=== PATIENT | male | born 1940 | race Two or more races ===

== ENCOUNTER 2023-08-22 04:04 | Inpatient (IN) | payer MEDICARE, OTHER ==
[~2023-08-22] VITALS: Ht 180.3 cm; Wt 88.0 kg
[2023-08-22] VITALS (11 sets, daily range): BP systolic 117–140; BP diastolic 59–82; PULSE 70–105; RESP 16–22; TEMP 97.5–98.5; O2SAT 93–96
[2023-08-22 04:27] LABS: Basophils # (auto) 0.1 10 ^3/uL (0-0.2); Basophils % (auto) 1.1 % (0.0-2.0); Eosinophils # (auto) 0.1 10 ^3/uL (0-0.8); Eosinophils % (auto) 1.7 % (0.0-7.0); Hematocrit 43.6 % (41.0-53.0); Hemoglobin 14.8 g/dL (13.5-17.5); Lymphocytes # (auto) 1.3 10 ^3/uL (0.4-5.4); Lymphocytes % (auto) 15.2 % (10.0-50.0); Mean Corpuscular Hemoglobin 32.5 pg (28.0-32.0); Mean Corpuscular Volume 95.5 fL (80.0-100.0); Monocytes # (auto) 0.5 10 ^3/uL (0-1.3); Monocytes % (auto) 6.3 % (0.0-12.0); Neutrophils # (auto) 6.3 10 ^3/uL (1.6-8.6); Neutrophils % (auto) 75.7 % (37.0-80.0); Nucleated Red Blood Cells % 0.1 %; Red Blood Cells 4.57 10^6/uL (4.5-5.90); Red Cell Distribution Width 14.7 % (11.8-14.3); White Blood Cell 8.3 10^3/uL (4.4-10.8)
[2023-08-22] MEDS: ALBUTEROL SULF 2.5 MG/0.5ML(0.5%) NEB SOLN NEB ONE (04:29)
[2023-08-22] MEDS: levoFLOXacin 500MG 100 ML IV ONE (04:48)
[2023-08-22 04:58] LABS: Albumin 3.9 g/dL (3.2-4.8); Alkaline Phosphatase 62 U/L (46-116); Anion Gap 8 (5-15); Aspartate Aminotransferase 8 U/L (13-40); BUN/Creatinine Ratio 16.9 (10.0-20.0); Blood Urea Nitrogen 12 mg/dL (9-23); Calcium 9.1 mg/dL (8.7-10.4); Carbon Dioxide 27 mmol/L (20-30); Chloride 107 mmol/L (98-107); Glucose 131 mg/dL (74-106); Sodium 142 mmol/L (136-145)
[2023-08-22 04:59] LABS: Alanine Aminotransferase < 9 U/L (7-40); Bilirubin, Total 0.6 mg/dL (0.2-1.0); Total Protein 6.4 g/dL (5.7-8.2)
[2023-08-22] MEDS ORDERED: ALBUTEROL SULF 2.5 MG/0.5ML(0.5%) NEB SOLN NEB PRN (06:45)
[2023-08-22] MEDS ORDERED: ONDANSETRON HCL 4 MG/2 ML VIAL IV PRN (06:45)
[2023-08-22] MEDS: cefTRIAXone 1GM/50ML D5W 50 ML IV SCH (09:43)
[2023-08-22] MEDS: ENOXAPARIN SOD 40 MG/0.4 ML SYRINGE SC SCH (09:43)
[2023-08-22] MEDS: IOHEXOL 350 MG/ML 100ML IJ ONE (10:08)
[2023-08-22] MEDS: METOPROLOL SUCCINATE XL 50 MG TAB PO ONE (11:50)
[2023-08-22] MEDS: amLODIPine BESYLATE 5 MG TAB PO ONE (11:50)
[2023-08-22] MEDS: AZITHROMYCIN 500MG/ 250ML 250 ML IV SCH (11:51)
[2023-08-22 11:53] LABS: Folate (Folic Acid) 43.47 ng/mL (>5.38)
[2023-08-22] MEDS: FUROSEMIDE 20 MG/2 ML VIAL IV ONE (11:58)
[2023-08-22] MEDS: PREGABALIN CAPSULE 75 MG CAP PO ONE (12:05)
[2023-08-22 12:43] LABS: Urine Bacteria None Seen /hpf (None Seen)
[2023-08-22 13:08] LABS: Urine Blood Negative /uL (Negative); Urine Clarity Clear (Clear); Urine Color Light-Yellow (Yellow); Urine Protein, UAD TRACE (Negative); Urine Urobilinogen Normal (Negative); Urine WBC 2 /hpf (0 - 3); Urine pH 6.5 (5.0-9.0)
[2023-08-22 13:52] LABS: COVID19 ANTIGEN SOFIA FIA NEGATIVE (NEGATIVE)
[2023-08-22 13:53] LABS: Rapid Influenza A Negative (Negative); Rapid Influenza B Negative (Negative)
[2023-08-22] MEDS: APIXABAN 5 MG TAB PO SCH (21:03)
[2023-08-22] MEDS: PREGABALIN CAPSULE 75 MG CAP PO SCH (21:04)
[2023-08-23] VITALS (10 sets, daily range): BP systolic 92–127; BP diastolic 48–68; PULSE 60–100; RESP 16–20; TEMP 97.6–98.1; O2SAT 91–98
[2023-08-23] MEDS: ACETAMINOPHEN 325 MG TAB PO PRN (05:55)
[2023-08-23 07:03] LABS: Basophils # (auto) 0.1 10 ^3/uL (0-0.2); Basophils % (auto) 0.9 % (0.0-2.0); Eosinophils # (auto) 0.1 10 ^3/uL (0-0.8); Eosinophils % (auto) 1.5 % (0.0-7.0); Hematocrit 39.6 % (41.0-53.0); Hemoglobin 13.6 g/dL (13.5-17.5); Lymphocytes # (auto) 1.5 10 ^3/uL (0.4-5.4); Mean Corpuscular Hemoglobin 32.6 pg (28.0-32.0); Mean Corpuscular Hgb Conc. 34.5 g/dL (32.0-36.0); Mean Corpuscular Volume 94.5 fL (80.0-100.0); Monocytes # (auto) 0.7 10 ^3/uL (0-1.3); Monocytes % (auto) 7.5 % (0.0-12.0); Neutrophils # (auto) 7.1 10 ^3/uL (1.6-8.6); Neutrophils % (auto) 74.1 % (37.0-80.0); Nucleated Red Blood Cells % 0.1 %; Red Blood Cells 4.19 10^6/uL (4.5-5.90); Red Cell Distribution Width 14.4 % (11.8-14.3); White Blood Cell 9.5 10^3/uL (4.4-10.8)
[2023-08-23 07:28] LABS: Chloride 105 mmol/L (98-107); Potassium 3.9 mmol/L (3.5-5.1); Sodium 143 mmol/L (136-145)
[2023-08-23 07:29] LABS: Anion Gap 8 (5-15); Calcium 8.9 mg/dL (8.7-10.4); Carbon Dioxide 30 mmol/L (20-30)
[2023-08-23 07:34] LABS: BUN/Creatinine Ratio 15.6 (10.0-20.0); Blood Urea Nitrogen 12 mg/dL (9-23); Glucose 91 mg/dL (74-106)
[2023-08-23] MEDS ORDERED: METF-370 PO (08:23)
[2023-08-23] MEDS ORDERED: LISI20TA56 PO (08:24)
[2023-08-23] MEDS ORDERED: METO25TA5 PO (08:25)
[2023-08-23] MEDS ORDERED: B-CO1CAP18 PO (08:26)
[2023-08-23] MEDS ORDERED: AMLO1TAB22 PO (08:27)
[2023-08-23] MEDS ORDERED: APIX5TAB PO (08:27)
[2023-08-23] MEDS ORDERED: PREG75CA PO (08:30)
[2023-08-23] MEDS: FUROSEMIDE 20 MG/2 ML VIAL IV SCH (09:28)
[2023-08-23] MEDS: METOPROLOL SUCCINATE XL 50 MG TAB PO SCH (09:29)
[2023-08-23] MEDS: amLODIPine BESYLATE 5 MG TAB PO SCH (09:29)
[2023-08-23] MEDS: EMPAGLIFLOZIN 10 MG TAB PO SCH (09:33)
[2023-08-23] MEDS: SPIRONOLACTONE 25 MG TAB PO SCH (09:34)
[2023-08-23] MEDS: CYANOCOBALAMIN (B-12) 1000 MCG/1 ML VIAL IM ONE (16:05)
[2023-08-24] VITALS (10 sets, daily range): BP systolic 99–140; BP diastolic 53–76; PULSE 65–92; RESP 16–22; TEMP 97.5–98.7; O2SAT 91–97
[2023-08-24] MEDS: LISINOPRIL 5 MG TAB PO SCH (09:08)
[2023-08-24] MEDS: METOPROLOL TARTRATE 25 MG TAB PO SCH (09:08)
[2023-08-25] VITALS (10 sets, daily range): BP systolic 110–155; BP diastolic 60–89; PULSE 66–108; RESP 16–19; TEMP 97.7–98.1; O2SAT 93–97
[2023-08-25 11:33] LABS: Base Excess -0.3 mmol/L (-2.0-2.0)
[2023-08-26 05:00] VITALS: BP 124/68; PULSE 114; RESP 16; TEMP 98.7; O2SAT 95
[2023-08-26 08:00] VITALS: PULSE 80; RESP 18; O2SAT 92
[2023-08-26] MEDS ORDERED: EMPA1TAB PO (08:29)
[2023-08-26] MEDS ORDERED: SPIR25TA PO (08:29)
[2023-08-26] MEDS ORDERED: FURO20TA3 PO (08:29)
[2023-08-26 09:57] VITALS: O2SAT 94
[2023-08-26 10:18] VITALS: BP 145/80; PULSE 75; RESP 18; TEMP 37.1; O2SAT 92
== END 2023-08-26 11:45 | disposition home or self-care (01) | DRG 177 ==
LOC: ER 04:04 → EDBD 04:04 → OVERFLOW 06:48 → WEST WING 08:58
PROVIDERS: ADMIT Internal Medicine; ATTEND Internal Medicine
DX: J15.69 Pneumonia due to other Gram-negative bacteria (principal); I50.23 Acute on chronic systolic (congestive) heart failure; J96.01 Acute respiratory failure with hypoxia; I11.0 Hypertensive heart disease with heart failure; J15.9 Unspecified bacterial pneumonia; I48.0 Paroxysmal atrial fibrillation; Z20.822 Contact with and (suspected) exposure to COVID-19; E11.9 Type 2 diabetes mellitus without complications; Z90.2 Acquired absence of lung [part of]; Z85.118 Personal history of other malignant neoplasm of bronchus and lung; Z92.3 Personal history of irradiation; Z80.0 Family history of malignant neoplasm of digestive organs; Z79.899 Other long term (current) drug therapy
CPT/HCPCS: 36415; 36600; 71045; 71275; 80048; 80053; 81001; 82306; 82607; 82746; 82805; 83036; 83735; 83880; 84439; 84443; 84484; 85025; 85379; 87426; 87804; 93005; 93306; 93970; 94640; 96365; 96366; 99291; G0378; J1956

== ENCOUNTER 2024-08-24 08:43 | Inpatient (IN) | payer OTHER, MEDICARE ==
[~2024-08-24] VITALS: Ht 172.7 cm; Wt 76.8 kg
[2024-08-24] VITALS (10 sets, daily range): BP systolic 108–146; BP diastolic 62–80; PULSE 65–120; RESP 16–21; TEMP 97–97.9; O2SAT 92–98
[~2024-08-24 08:43] MED LIST: AMLO1TAB22 PO; APIX5TAB PO; B-CO1CAP18 PO; EMPA1TAB PO; FURO20TA3 PO; LISI20TA56 PO; METF-370 PO; METO25TA5 PO; PREG75CA PO; SPIR25TA PO
--- NOTE | 2024-08-24 08:58 | ED.PDOC ---
HPI Comments This is a 84 year old male PAULO presenting to the ED with chief complaint of SOB. EMS reports that the patient has been experiencing SOB for the past 12 hours with an associated high heart rate. EMS relays that the patient's O2 saturation was at 88% on RA, being placed on 4L of O2 and is now order. EMS states that the patient's right leg is now more swollen than his left, which is not normal for him. Patient denies any chest pain, dizziness, N/V, cough, or fever. 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, Medications, Allergies Allergies: Coded Allergies: Procaine (Verified Allergy, Unknown, 08/22/23) Home Meds Active Scripts Furosemide (Furosemide) 20 Mg Tab, 1 TAB PO DAILY, #90 TAB 1 Refill Prov:MARGARITA SWARTZ RESIDENT 08/26/23 Spironolactone (Aldactone) 25 Mg Tab, 25 MG PO DAILY for 90 Days, #90 TAB Prov:MARGARITA SWARTZ RESIDENT 08/26/23 Empagliflozin (Jardiance) 10 Mg Tab, 10 MG PO DAILY for 90 Days, #90 TAB Prov:MARGARITA SWARTZ RESIDENT 08/26/23 Reported Medications Pregabalin (Lyrica) 75 Mg Cap, 75 MG PO Q6HP PRN for PAIN SCALE 7 THRU 10, CAP 08/23/23 Apixaban Base (ELIQUIS) 5 Mg Tab, 5 MG PO BID, TAB 08/23/23 Amlodipine Besylate (Amlodipine Besylate) 5 Mg Tab, 1 TAB PO DAILY, #30 TAB 5 R efills 08/23/23 B-Complex Vitamins (Vitamin B Complex) 1 Cap Cap, 1 CAP PO DAILY, CAP 08/23/23 Metoprolol Tartrate (Metoprolol Tartrate) 25 Mg Tab, 2 TAB PO BID, #180 TAB 1 Refill 08/23/23 Lisinopril (Lisinopril) 20 Mg Tab, 10 TAB PO DAILY, #30 TAB 5 Refills 08/23/23 Metformin Hydrochloride (Metformin Hcl) 500 Mg Tab, 1 TAB PO DAILY, #60 TAB 3 Refills 08/23/23 Information Source: Patient, Emergency Med Personnel Mode of Arrival: EMS Severity: Moderate Timing: Hours Duration: Since onset Prehospital treatment: None Associated Signs and Symptoms: SOB Past Medical History PAST MEDICAL HISTORY: AFIB, Cancer Surgical History: Denies all surgeries Family History Family History: Reviewed,noncontributory to illness Social History Smoker: Non-Smoker Alcohol: Denies ETOH Use Drugs: Denies Drug Use Lives In: Home Constitutional: denies: chills, diaphoresis, fatigue, fever, malaise, sweats, weakness, others EENTM: denies: blurred vision, double vision, ear bleeding, ear discharge, ear drainage, ear pain, ear ringing, eye pain, eye redness, hearing loss, mouth pain, mouth swelling, nasal discharge, nose bleeding, nose congestion, nose pain, photophobia, tearing, throat pain, throat swelling, voice changes, others Respiratory: reports: shortness of breath; denies: cough, hemoptysis, orthopnea, SOB at rest, SOB with excertion, stridor, wheezing, others Cardiovascular: reports: edema; denies: chest pain, dizzy spells, diaphoresis, Dyspnea on exertion, irregular heart beat, left arm pain, lightheadedness, palpitations, PND, syncope, others Gastrointestinal: denies: abdomen distended, abdominal pain, blood streaked bowels, constipated, diarrhea, dysphagia, difficulty swallowing, hematemesis, melena, nausea, poor appetite, poor fluid intake, rectal bleeding, rectal pain, vomiting, others Genitourinary: denies: burning, dysuria, flank pain, frequency, hematuria, incontinence, penile discharge, penile sore, pain, testicle pain, testicle swelling, urgency, others Neurological: denies: dizziness, fainting, headache, left sided numbness, left sided weakness, numbness, paresthesia, pre-existing deficit, right sided numbness, right sided weakness, seizure, speech problems, tingling, tremors, weakness, others Musculoskeletal: denies: back pain, gout, joint pain, joint swelling, muscle pain, muscle stiffness, neck pain, others Integumetry: denies: bruises, change in color, change in hair/nails, dryness, laceration, lesions, lumps, rash, wounds, others Allergic/Immunocompromised: denies: Difficulty Healing, Frequent Infections, Hives, Itching, others Hematologic/Lymphatic: denies: anemia, blood clots, easy bleeding, easy bruising, swollen glands, others Endocrine: denies: excessive hunger, excessive sweating, excessive thirst, excessive urination, flushing, intolerance to cold, intolerance to heat, unexplained weight gain, unexplained weight loss, others Psychiatric: denies: anxiety, bipolar disorder, depression, hopeless, panic d isorder, schizophrenia, sleepless, suicidal, others All Other Systems: Reviewed and Negative Physical Exam General Appearance: No Apparent Distress, Normal HEENT: Normal ENT Inspection, Pharynx Normal, TMs Normal Neck: Full Range of Motion, Non-Tender, Normal, Normal Inspection Respiratory: Chest Non-Tender, Lungs Clear, No Accessory Muscle Use, No Respiratory Distress, Normal Breath Sounds Cardiovascular: No Edema, No JVD, No Murmur, No Gallop, Normal Peripheral Pulses, Other (Irregularly irregular) Breast Exam: Deferred Gastrointestinal: No Organomegaly, Non Tender, No Pulsatile Mass, Normal Bowel Sounds, Soft Genitalia: Deferred Pelvic: Deferred Rectal: Deferred Extremities: No calf tenderness, Normal capillary refill, Normal range of motion, Other (Right leg edema noted.) Musculoskeletal : Apperance: Normal Neurologic: Alert, cane stripper II-XII nml as Tested, No Motor Deficits, Normal Affect, Normal Mood, No Sensory Deficits Cerebellar Function: Normal Reflexes: Normal Skin: Dry, Normal Color, Warm Lymphatic: No Adenopathy EKG EKG : Pulse Rate (adult): 109 [place]: Normal Cardiac Rhythm: Afib Block: None Hypertrophy: None ST: Normal Was a procedure done? Was a procedure done?: No CP Differential Dx Differential Diagnosis: MAT, AL, PAC's Differential Diagnosis: HTN Encephalopathy Differential Diagnosis: Gastritis, Myocardial Infarction, Pericarditis X-Ray, Labs, Meds, VS Vital Signs Date Time Temp Pulse Resp B/P (MAP) Pulse Ox O2 Delivery O2 Flow Rate FiO2 08/24/24 09:56 116 08/24/24 09:38 88 08/24/24 09:15 97.8 119 20 146/80 (102) 97 97.8 08/24/24 09:15 119 20 97 Nasal Cannula* 4 36 08/24/24 09:15 97 Nasal Cannula* 4 36 08/24/24 08:58 109 08/24/24 08:45 98.0 148 18 114/68 (83) 97 98.0 08/24/24 08:43 109 Lab Test 08/24/24 09:52 08/24/24 08:58 Range/Units Troponin I High Sensitivity 12 13 </=54 ng/L White Blood Count 9.0 4.4-10.8 10^3/uL Red Blood Count 4.57 4.5-5.90 10^6/uL Hemoglobin 14.7 13.5-17.5 g/dL Hematocrit 43.9 41.0-53.0 % Mean Corpuscular Volume 96.0 80.0-100.0 fL Mean Corpuscular Hemoglobin 32.1 H 28.0-32.0 pg Mean Corpuscular Hemoglobin Concent 33.4 32.0-36.0 g/dL Red Cell Distribution Width 15.5 H 11.8-14.3 % Platelet Count 303 140-450 10^3/uL Mean Platelet Volume 7.8 6.9-10.8 fL Neutrophils (%) (Auto) 83.1 H 37.0-80.0 % Lymphocytes (%) (Auto) 7.5 L 10.0-50.0 % Monocytes (%) (Auto) 7.6 0.0-12.0 % Eosinophils (%) (Auto) 0.9 0.0-7.0 % Basophils (%) (Auto) 0.9 0.0-2.0 % Neutrophils # (Auto) 7.4 1.6-8.6 10 ^3/uL Lymphocytes # (Auto) 0.7 0.4-5.4 10 ^3/uL Monocytes # (Auto) 0.7 0-1.3 10 ^3/uL Eosinophils # (Auto) 0.1 0-0.8 10 ^3/uL Basophils # (Auto) 0.1 0-0.2 10 ^3/uL Nucleated Red Blood Cells 0.1 % Prothrombin Time 13.3 H 9.3-11.8 sec Prothrombin Time INR 1.29 H 0.9-1.15 Activated Partial Thromboplast Time 35.6 H 24.5-34.5 SEC Sodium Level 144 136-145 mmol/L Potassium Level 3.9 3.5-5.1 mmol/L Chloride Level 106 98-107 mmol/L Carbon Dioxide Level 27 20-31 mmol/L Anion Gap 11 5-15 Blood Urea Nitrogen 17 9-23 mg/dL Creatinine 0.88 0.700-1.30 mg/dL Glomerular Filtration Rate Calc 84 >90 mL/min BUN/Creatinine Ratio 19.3 10.0-20.0 Serum Glucose 116 H 74-106 mg/dL Lactic Acid Level 1.6 0.4-2.0 mmol/L Calcium Level 9.7 8.7-10.4 mg/dL B-Type Natriuretic Peptide 813.06 0-100 pg/mL [place] [address] Ph: [phone] DIAGNOSTIC IMAGING Diagnostic Imaging Report : [id number] Signed PATIENT: DAYANA LAYNE AACCT: [id number] UNIT: [id number] : 1940 LOC: ER ROOM / BED: / AGE / SEX: 84 / M ADM STATUS: REG ER SERVICE 0000 ORDERING PHYSICIAN: SHIKHA PARKINSON MD PROCEDURE(s): RLDVT - RT Lower DVT REASON: RLE SWELLING ORDER NUMBER(s): [id number], ACCESSION NUMBER(s): [id number] US RT Lower DVT HISTORY: RLE SWELLING COMPARISON: US BILAT LOWER DVT on DOS: 08/22/23 TECHNIQUE: Duplex doppler evaluation of the deep venous system of the lower extremity from the common femoral veins, superficial femoral vein, great saphenous vein, deep femoral vein, popliteal vein, and calf veins, including color doppler and spectral/pulsed waveform analysis, was performed. FINDINGS: Right: - Common femoral vein: Compressible - Deep femoral vein: Compressible - Femoral vein: Compressible - Popliteal vein: Compressible - Posterior tibial vein: Waveforms present - Other: Nothing IMPRESSION: No right lower extremity deep venous thrombosis. ATED BY: BOB JOHNSON MD DICTATED DATE/TIME: 08/24/24951 SIGNED BY: BOB JOHNSON MD SIGNED DATE/TIME: 08/24/24951 CC: [address] [address] Ph: [phone] DIAGNOSTIC IMAGING Diagnostic Imaging Report : [id number] Signed PATIENT: DAYANA LAYNE AACCT: [id number] UNIT: [id number] : 1940 LOC: ER ROOM / BED: / AGE / SEX: 84 / M ADM STATUS: REG ER SERVICE 3 ORDERING PHYSICIAN: SHIKHA PARKINSON MD PROCEDURE(s): CXRP - CHEST PORTABLE REASON: shortness of breath ORDER NUMBER(s): [id number], ACCESSION NUMBER(s): [id number] EXAM: XY CHEST PORTABLE HISTORY: shortness of breath COMPARISON: XY CHEST PORTABLE on DOS: 08/22/23. For reasons unknown, chest CT dated 08/22/2023 was not made available in the PACS system for viewing. TECHNIQUE: Portable AP view of the chest was performed. FINDINGS: There is diffuse interstitial prominence. There is right basilar infiltrate. There are likely small bilateral pleural effusions. No pneumothorax. The heart is enlarged. The aortic arch is calcific. There is likely a calcified granuloma in the right hilum. The central pulmonary arteries may be ectatic. IMPRESSION: 1. Cardiomegaly with diffuse interstitial prominence and bilateral pleural effusions suggestive of CHF. 2. Right basilar infiltrate may be due to atelectasis or pneumonia. 3. Atherosclerotic vascular disease and possible pulmonary arterial hypertension. 4. Recommend comparison with chest CT performed 3 days earlier, which was not made available on the PACS system for my comparison at this time. ATED BY: MOSES GARCIA MD DICTATED DATE/TIME: 08/24/24923 SIGNED BY: MOSES GARCIA MD SIGNED DATE/TIME: 08/24/24923 CC: Images Reviewed?: Images reviewed and evaluated by me Time of 1ST Reevaluation: 09:49 Reevaluation 1ST: Unchanged Patient Education/Counseling: Diagnosis, Treatment Family Education/Counseling: No Family Present Additional Information Previous visits reviewed: 08/22/23 for pneumonia The following tests were ordered, and results were reviewed by me: CBC, BMP, BNP, PT, PTT, Troponin, Lactic, EKG, Chest XR, Rt Lower DVT Additional Information was gathered from interviewing the following independent historians: EMS I reviewed and agreed with the following test results read by other providers: Chest XR, Rt Lower DVT I discussed treatment and results with medical personnel and: patient Comprehensive systems review obtained and negative except for what is stated in the HPI. Sepsis Sepsis Reasesment Focused Exam Orders: Laboratory Tests 08/24/24 08:58: Lactic Acid Level 1.6 Departure 1 Departure Time of Disposition: 11:04 (Patient with worsening shortness of breath I concern for pneumonia. Patient we will not receive fluid boluses patient clinically appears volume overloaded. We will admit patient for further workup and expert consultation) Impression: Primary Impression: Shortness of breath Additional Impressions: Pneumonia Qualified Codes: J18.9 - Pneumonia, unspecified organism Palpitations Right leg swelling Acute on chronic systolic heart failure Disposition: ADMITTED INPATIENT Admit to: Med Surg Condition: Guarded Critical Care Note Critical Care Time?: Yes Critical care comment: Shortness of breath Authorized and Performed by: Shikha Parkinson MD Total critical care time: Approximately 38 minutes Due to a high probability of clinically significant, life threatening deterioration, the patient required my highest level of preparedness to intervene emergently and I personally spent this critical care time directly and personally managing the patient. This critical care time included obtaining a history; examining the patient; pulse oximetry; ordering and review of studies; arranging urgent treatment with development of a management plan; evaluation of patient's response to treatment; frequent reassessment; and, discussions with other providers. This critical care time was performed to assess and manage the high probability of imminent, life-threatening deterioration that could result in multi-organ failure. It was exclusive of separately billable procedures and treating other patients and teaching time. Please see my other sections and the rest of the note for further information on patient assessment and treatment. Stability Stability form required: No Heart Score Heart Score: Heart Score Response (Comments) Value History Highly Suspicious 2 EKG Normal 0 Age >65 2 Risk Factors >3 or Hx ASHD 2 Troponin Normal limit 0 Total 6 I personally scribed for SHIKHA PARKINSON MD ([email or web address]) on 08/24/24 at 08:58. Electr onically submitted by Rd Murray ([email or web address]). I personally scribed for SHIKHA PARKINSON MD ([email or web address]) on 08/24/24 at 10:28. Electr onically submitted by Rd Murray ([email or web address]). SHIKHA PARKINSON MD Aug 24, 2024 08:58
[2024-08-24 09:24] LABS: Basophils # (auto) 0.1 10 ^3/uL (0-0.2); Basophils % (auto) 0.9 % (0.0-2.0); Eosinophils # (auto) 0.1 10 ^3/uL (0-0.8); Eosinophils % (auto) 0.9 % (0.0-7.0); Hematocrit 43.9 % (41.0-53.0); Hemoglobin 14.7 g/dL (13.5-17.5); Lymphocytes # (auto) 0.7 10 ^3/uL (0.4-5.4); Lymphocytes % (auto) 7.5 % (10.0-50.0); Mean Corpuscular Hemoglobin 32.1 pg (28.0-32.0); Mean Corpuscular Hgb Conc. 33.4 g/dL (32.0-36.0); Monocytes # (auto) 0.7 10 ^3/uL (0-1.3); Monocytes % (auto) 7.6 % (0.0-12.0); Neutrophils # (auto) 7.4 10 ^3/uL (1.6-8.6); Neutrophils % (auto) 83.1 % (37.0-80.0); Nucleated Red Blood Cells % 0.1 %; Platelet Count (auto) 303 10^3/uL (140-450); Red Blood Cells 4.57 10^6/uL (4.5-5.90); Red Cell Distribution Width 15.5 % (11.8-14.3)
--- NOTE | 2024-08-24 09:27 | DVH ---
EXAM: XY CHEST PORTABLE HISTORY: shortness of breath COMPARISON: XY CHEST PORTABLE on DOS: 08/22/23. For reasons unknown, chest CT dated 08/22/2023 was no t made available in the PACS system for viewing. TECHNIQUE: Portable AP view of the chest was performed. FINDINGS: There is diffuse interstitial prominence. There is right basilar infiltrate. There are likely small bilateral pleural effusions. No pneumothorax. The heart is enlarged. The aortic arch is calcific. Th ere is likely a calcified granuloma in the right hilum. The central pulmonary arteries may be ectatic . IMPRESSION: 1. Cardiomegaly with diffuse interstitial prominence and bilateral pleural effusions suggestive of CH F. 2. Right basilar infiltrate may be due to atelectasis or pneumonia. 3. Atherosclerotic vascular disease and possible pulmonary arterial hypertension. 4. Recommend comparison with chest CT performed 3 days earlier, which was not made available on the [employer] system for my comparison at this time.
[2024-08-24 09:37] LABS: Chloride 106 mmol/L (98-107); Potassium 3.9 mmol/L (3.5-5.1); Sodium 144 mmol/L (136-145)
[2024-08-24 09:38] LABS: Anion Gap 11 (5-15); Carbon Dioxide 27 mmol/L (20-31)
[2024-08-24 09:39] LABS: Calcium 9.7 mg/dL (8.7-10.4)
[2024-08-24 09:40] LABS: INR 1.29 (0.9-1.15); Partial Thromboplastin Time 35.6 SEC (24.5-34.5); Prothrombin Time 13.3 sec (9.3-11.8)
[2024-08-24 09:44] LABS: BUN/Creatinine Ratio 19.3 (10.0-20.0); Blood Urea Nitrogen 17 mg/dL (9-23)
[2024-08-24 09:46] LABS: Glucose 116 mg/dL (74-106)
--- NOTE | 2024-08-24 09:55 | DVH ---
US RT Lower DVT HISTORY: RLE SWELLING COMPARISON: US BILAT LOWER DVT on DOS: 08/22/23 TECHNIQUE: Duplex doppler evaluation of the deep venous system of the lower extremity from the common femoral veins, superficial femoral vein, great saphenous vein, deep femoral vein, popliteal vein, an d calf veins, including color doppler and spectral/pulsed waveform analysis, was performed. FINDINGS: Right: - Common femoral vein: Compressible - Deep femoral vein: Compressible - Femoral vein: Compressible - Popliteal vein: Compressible - Posterior tibial vein: Waveforms present - Other: Nothing IMPRESSION: No right lower extremity deep venous thrombosis.
[2024-08-24] MEDS ORDERED: HYDROcodone-ACET 5/325MG TAB PO PRN (11:30)
[2024-08-24] MEDS ORDERED: MORPHINE SULFATE INJ 2 MG/ml SYRG IV PRN (11:30)
[2024-08-24] MEDS ORDERED: DOCUSATE SOD 100 MG CAP PO PRN (11:30)
[2024-08-24] MEDS ORDERED: NITROGLYCERIN 0.4 MG SL TAB SL PRN (11:30)
[2024-08-24] MEDS ORDERED: ACETAMINOPHEN 325 MG TAB PO PRN (11:30)
[2024-08-24] MEDS ORDERED: ONDANSETRON HCL 4 MG/2 ML VIAL IV PRN (11:30)
[2024-08-24] MEDS ORDERED: DEXTROSE (50%) 50ML SYRG IV PRN (12:00)
[2024-08-24] MEDS: VANCOMYCIN 1GM/200ML PM 200 ML IV ONE (12:00)
--- NOTE | 2024-08-24 12:04 | DVHHP2 ---
History of Present Illness Reason for Visit: Shortness of breath History of Present Illness Dontrell Carr is an 84-year-old male with past medical history of lung cancer - S/P left lower lobectomy and radiation, hypertension, hyperlipidemia, diabetes, and atrial fibrillation, who came to the hospital for shortness of breath. Patient states his shortness of breath began about 1 week ago. Then last night he says his heart rate was 140-150 all night worsening his shortness of breath. He states he has had atrial fibrillation for over 10 years and it is usually well controlled, but this is his second event this week with his heart rate being elevated. He states his HR is usually 60-70 A-Fib. Cardiovascular: AFIB, HTN, hyperipidemia Heme/Onc: Cancer (lung) Endocrine: Diabetes Past Surgical History: Other (Left lower lobectomy) Smoke: No ALCOHOL: none Drugs: None Lives: with Family Domestic Violence: Neg Review of Systems Constitutional: No: Fever, Chills, Sweats, Weakness, Malaise, Other Eyes: No: Pain, Vision change, Conjunctivae inflammation, Eyelid inflammation, Other, Redness ENT: No: Ear pain, Ear discharge, Nose pain, Nose discharge, Nose congestion, Mouth pain, Mouth swelling, Throat pain, Throat swelling, Other Respiratory: Shortness of breath, SOB with excertion, Wheezing; No: Cough, Dry, Hemoptysis, Pleuritic Pain, Sputum, Wheezing, Other Cardiovascular: Palpitations; No: Chest Pain, Orthopnea, Paroxysmal Noc. Dyspnea, Edema, Lt Headedness, Other Gastrointestinal: No: Nausea, Vomiting, Abdominal Pain, Diarrhea, Constipation, Melena, Hematochezia, Other Genitourinary: No Dysuria, No Frequency, No Incontinence, No Hematuria, No Retention, No Other Musculoskeletal: No: other, neck pain, shoulder pain, arm pain, back pain, hand pain, leg pain, foot pain Skin: No: Rash, Lesions, Jaundice, Bruising, Other Neurological: No: Weakness, Numbness, Incoordination, Change in speech, Confusion, Seizures, Other Allergies: Coded Allergies: Procaine (Verified Allergy, Unknown, 08/22/23) Exam Vital Signs Vital Signs Date Time Temp Pulse Resp B/P (MAP) Pulse Ox O2 Delivery O2 Flow Rate FiO2 08/24/24 09:56 116 08/24/24 09:15 97.8 20 146/80 (102) 97 97.8 08/24/24 09:15 Nasal Cannula* 4 36 General Appearance: Alert, Oriented X3, Cooperative, moderate distress HEENT: Atraumatic, PERRLA Respiratory: Other (Diminished breath sounds, wheezing) Cardiovascular: Normal S1, Normal S2, Other (atrial fibrillation with RVR ) Abdominal: Normal bowel sounds, Soft, No tenderness, No hepatospenomegaly Extremities: No clubbing, No cyanosis, Normal pulses, No tenderness/swelling, Other (bilateral lower extremity edema) Skin: No rashes, No breakdown, No significant lesion Neuro: Normal gait, Normal speech, Strength at 5/5 X4 ext, Normal tone Psych/Mental Status: Mental status NL, Mood NL Labs/Xrays Labs Test 08/24/24 11:40 08/24/24 09:52 08/24/24 08:58 Range/Units Troponin I High Sensitivity 12 </=54 ng/L White Blood Count 9.0 4.4-10.8 10^3/uL Red Blood Count 4.57 4.5-5.90 10^6/uL Hemoglobin 14.7 13.5-17.5 g/dL Hematocrit 43.9 41.0-53.0 % Mean Corpuscular Volume 96.0 80.0-100.0 fL Mean Corpuscular Hemoglobin 32.1 H 28.0-32.0 pg Mean Corpuscular Hemoglobin Concent 33.4 32.0-36.0 g/dL Red Cell Distribution Width 15.5 H 11.8-14.3 % Platelet Count 303 140-450 10^3/uL Mean Platelet Volume 7.8 6.9-10.8 fL Neutrophils (%) (Auto) 83.1 H 37.0-80.0 % Lymphocytes (%) (Auto) 7.5 L 10.0-50.0 % Monocytes (%) (Auto) 7.6 0.0-12.0 % Eosinophils (%) (Auto) 0.9 0.0-7.0 % Basophils (%) (Auto) 0.9 0.0-2.0 % Neutrophils # (Auto) 7.4 1.6-8.6 10 ^3/uL Lymphocytes # (Auto) 0.7 0.4-5.4 10 ^3/uL Monocytes # (Auto) 0.7 0-1.3 10 ^3/uL Eosinophils # (Auto) 0.1 0-0.8 10 ^3/uL Basophils # (Auto) 0.1 0-0.2 10 ^3/uL Nucleated Red Blood Cells 0.1 % Prothrombin Time 13.3 H 9.3-11.8 sec Prothrombin Time INR 1.29 H 0.9-1.15 Activated Partial Thromboplast Time 35.6 H 24.5-34.5 SEC Sodium Level 144 136-145 mmol/L Potassium Level 3.9 3.5-5.1 mmol/L Chloride Level 106 98-107 mmol/L Carbon Dioxide Level 27 20-31 mmol/L Anion Gap 11 5-15 Blood Urea Nitrogen 17 9-23 mg/dL Creatinine 0.88 0.700-1.30 mg/dL Glomerular Filtration Rate Calc 84 >90 mL/min BUN/Creatinine Ratio 19.3 10.0-20.0 Serum Glucose 116 H 74-106 mg/dL Calcium Level 9.7 8.7-10.4 mg/dL B-Type Natriuretic Peptide 813.06 0-100 pg/mL EXAM: XY CHEST PORTABLE FINDINGS: There is diffuse interstitial prominence. There is right basilar infiltrate. There are likely small bilateral pleural effusions. No pneumothorax. The heart is enlarged. The aortic arch is calcific. There is likely a calcified granuloma in the right hilum. The central pulmonary arteries may be ectatic. IMPRESSION: 1. Cardiomegaly with diffuse interstitial prominence and bilateral pleural effusions suggestive of CHF. 2. Right basilar infiltrate may be due to atelectasis or pneumonia. 3. Atherosclerotic vascular disease and possible pulmonary arterial hypertension. 4. Recommend comparison with chest CT performed 3 days earlier, which was not made available on the PACS system for my comparison at this time. US RT Lower DVT FINDINGS: Right: - Common femoral vein: Compressible - Deep femoral vein: Compressible - Femoral vein: Compressible - Popliteal vein: Compressible - Posterior tibial vein: Waveforms present - Other: Nothing IMPRESSION: No right lower extremity deep venous thrombosis. Assessment/Plan Assessment/Plan Assessment: Pneumonia, Pleural effusion, Cardiomegaly, Atrial fibrillation with RVR, Fluid overload, CHF exacerbation, Hypertension, Hyperlipidemia, Diabetes, Plan: Admit to Tele, Cardiology consult, ECHO, IV antibiotics, IV Lasix, IV steroids, Breathing treatments, Blood cultures, Accu checks Q AC&HS with sliding scale, Lipid panel, TSH, A1c, Home medications reconciled, Plan discussed with: Patient Date of Service: Aug 24, 2024 Billing Provider: DEVYN GALEAS Common Visit Codes: [id number] INP/OBS CARE (HIGH) DEVYN GALEAS Aug 24, 2024 12:04
[2024-08-24] MEDS: IPRATROPIUM BROM 0.5 MG/2.5ML INH SOL NEB SCH (12:30)
[2024-08-24] MEDS: ALBUTEROL SULF 2.5 MG/0.5ML(0.5%) NEB SOLN NEB SCH (12:30)
[2024-08-24] MEDS: IPRATROPIUM BROM 0.5 MG/2.5ML INH SOL ONE (12:31)
[2024-08-24] MEDS: ALBUTEROL SULF 2.5 MG/0.5ML(0.5%) NEB SOLN ONE (12:31)
--- NOTE | 2024-08-24 12:33 | DVH ---
US CHEST ULTRASOUND, HISTORY: FLUID CHECK FOR POSSIBLE THORACENTESIS COMPARISON(S): None TECHNICAL DATA: Transverse and longitudinal images are obtained of the chest. FINDING: IMPRESSION(S): Trace right pleural effusion. No left pleural effusion seen.
[2024-08-24] MEDS: FUROSEMIDE 40 MG/4 ML VIAL IV ONE (13:08)
[2024-08-24] MEDS: METOPROLOL TARTRATE 50 MG TAB PO ONE (13:08)
[2024-08-24] MEDS: CEFEPIME 2GM/50ML NS 50 ML IV ONE (13:09)
[2024-08-24 13:30] LABS: Triglycerides 65 mg/dL (< 150)
[2024-08-24 13:31] LABS: LDL Cholesterol 69 mg/dL (< 100)
[2024-08-24 13:32] LABS: Cholesterol 111 mg/dL (< 200)
[2024-08-24 13:33] LABS: HDL Cholesterol 28 mg/dL (40-59)
[2024-08-24] MEDS: SODIUM CHLOR 0.9% PF (SALINE LOCK) 10ML VIAL/SYR IV SCH (14:00)
--- NOTE | 2024-08-24 14:37 | DVHINCON2 ---
Date Seen: Aug 24, 2024 Referring Physician [place] Jama Reason for Consultation Uncontrolled atrial fibrillation History of Present Illness This is a pleasant 84-year-old male patient who presents to the emergency room with chief complaint of shortness of breath that began last night. The patient came to the emergency room for further evaluation. Cardiology has been consulted at this time for uncontrolled atrial fibrillation. Initial twelve lead electrocardiogram reveals atrial fibrillation with PVCs. At the time of assessment, the patient remains in atrial fibrillation with uncontrolled rate. Serial troponin levels have been negative. Initial BNP level of 813.06pg/mL. Significant past medical history includes congestive heart failure, atrial fibrillation (on Eliquis), hypertension, lung cancer status post left lower lobe lobectomy and radiation, now in remission, and tobacco use. 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 Past Medical History Past medical history reviewed. No other significant than mentioned above. Past Surgical History Left lower lung lobe lobectomy in 2010 Family History: FH: GI cancer G8 MOTHER, Family History Family history reviewed. Social History Patient has a 50 pack-year history, quit smoking in 2010 Denies any illicit drug use Denies any alcohol use Allergies: Coded Allergies: Procaine (Verified Allergy, Unknown, 08/22/23) Home Meds Reported Medications Apixaban Base (ELIQUIS) 5 Mg Tab, 5 MG PO BID, TAB 08/23/23 Amlodipine Besylate (Amlodipine Besylate) 5 Mg Tab, 1 TAB PO DAILY, #30 TAB 5 Refills 08/23/23 B-Complex Vitamins (Vitamin B Complex) 1 Cap Cap, 1 CAP PO DAILY, CAP 08/23/23 Metoprolol Tartrate (Metoprolol Tartrate) 25 Mg Tab, 2 TAB PO BID, #180 TAB 1 Refill 08/23/23 Lisinopril (Lisinopril) 20 Mg Tab, 10 TAB PO DAILY, #30 TAB 5 Refills 08/23/23 Metformin Hydrochloride (Metformin Hcl) 500 Mg Tab, 1 TAB PO DAILY, #60 TAB 3 Refills 08/23/23 Discontinued Reported Medications Pregabalin (Lyrica) 75 Mg Cap, 75 MG PO Q6HP PRN for PAIN SCALE 7 THRU 10, CAP 08/23/23 Discontinued Scripts Furosemide (Furosemide) 20 Mg Tab, 1 TAB PO DAILY, #90 TAB 1 Refill Prov:MARGARITA SWARTZ RESIDENT 08/26/23 Spironolactone (Aldactone) 25 Mg Tab, 25 MG PO DAILY for 90 Days, #90 TAB Prov:MARGARITA SWARTZ RESIDENT 08/26/23 Empagliflozin (Jardiance) 10 Mg Tab, 10 MG PO DAILY for 90 Days, #90 TAB Prov:MARGARITA SWARTZ RESIDENT 08/26/23 Home Meds Home medications reviewed. Current Medications Current Medications Medications (Trade) Dose Ordered Sig/Dejon Route PRN Reason Start Time Stop Time Status Last Admin Sodium Chloride (Saline Lock Ns) 10 ml Q8HR IV 08/24/24 14:00 Acetaminophen/ Hydrocodone Bitart ([place] 5/325MG Tab) 1 tab Q4HP PRN PO MODERATE PAIN (4-6 PAIN SCALE) 08/24/24 11:30 Ondansetron HCl (Zofran) 4 mg Q4HP PRN IV NAUSEA / VOMITING 08/24/24 11:30 Docusate Sodium (Colace Capsule) 100 mg BIDPRN PRN PO FOR CONSTIPATION 08/24/24 11:30 Acetaminophen (Tylenol Tablet) 650 mg Q6HP PRN PO PAIN SCALE 1-3 OR TEMP>100.4 08/24/24 11:30 Nitroglycerin (Ntrostat Sublingual) 0.4 mg Q5MINP PRN SL FOR CHEST PAIN 08/24/24 11:30 Morphine Sulfate 2 mg Q30M PRN IV FOR CHEST PAIN 08/24/24 11:30 Furosemide (Lasix Injection) 20 mg DAILY IV 08/25/24 10:00 Ceftriaxone Sodium 50 ml @ 100 mls/hr DAILY@09 IV 08/25/24 09:00 Azithromycin 250 ml @ 125 mls/hr DAILY IV 08/25/24 10:00 Amlodipine Besylate (Norvasc Tablet) 5 mg DAILY PO 08/25/24 10:00 Apixaban (Eliquis) 5 mg BID PO 08/24/24 22:00 Lisinopril (Zestril Tablet) 10 mg DAILY PO 08/25/24 10:00 Metoprolol Tartrate (Lopressor Tablet) 50 mg BID PO 08/24/24 22:00 Diagnostic Test (Pha) (Accu-Chek Comfort Curve T) 1 strip ACHS 08/24/24 17:00 Insulin Human Regular (InsuLIN R) HS SC 08/24/24 22:00 Insulin Human Regular (InsuLIN R) AC NE 08/24/24 17:00 Dextrose 50 ml UD PRN IV Blood Sugar LESS THAN 60 08/24/24 12:00 Ipratropium [place] (Atrovent Medneb) 0.5 mg Q6HWA [facility] [place] 08/24/24 12:00 08/24/24 12:30 Albuterol (Ventolin Medneb) 2.5 mg Q6HWA [facility] [place] 08/24/24 12:00 08/24/24 12:30 Methylprednisolone Sodium Succinate (Solu Medrol) 40 mg BID IV 08/24/24 22:00 Review of Systems Constitutional: No symptom reported Ears, Nose, & Throat: No symptom reported Eyes: No symptom reported Neurological: No symptoms reported Pulmonary/Respiratory: Shortness of breath Cardiovascular: No symptom reported Gastrointestinal: No symptom reported Genitourinary: No symptom reported Musculoskeletal: No symptom reported Skin: No symptom reported Psychiatric: No symptom reported Endocrine: No symptom reported Hematologic/Lymphatic: No symptom reported Vital Signs Vital Signs Date Time Temp Pulse Resp B/P (MAP) Pulse Ox O2 Delivery O2 Flow Rate FiO2 08/24/24 13:08 107 126/54 08/24/24 12:37 18 98 08/24/24 12:30 Nasal Cannula* 4 36 08/24/24 12:30 97.8 97.8 Physical Exam General Appearance: Cooperative. Well-developed. Well-nourished. No acute distress. Pulmonary/Respiratory: Clear, bilateral breaths sounds. Cardiovascular/Chest: Irregularly irregular rate and rhythm. Peripheral Pulses: 2+ Radial (R). 2+ Radial (L). 2+ Pedal (R). 2+ Pedal (L) Abdominal Exam: Normal bowel sounds. Ankle Exam: Nonpitting bilateral ankle edema Lower extremities: Nonpitting bilateral lower extremity edema Neuro/Mental Status: A/OX4, coherent. Thoughts/Psych: Normal thought pattern. Appropriate mood and affect. Good judgment and insight. Appearance: No acute distress. Skin Exam: Normal inspection. Normal color. Warm and dry. Labs/Diagnostic Data Labs Test 08/24/24 11:40 08/24/24 09:52 08/24/24 08:58 Range/Units Lactic Acid Level 1.2 0.4-2.0 mmol/L Troponin I High Sensitivity 13 </=54 ng/L Thyroid Stimulating Hormone (TSH) 1.15 0.55-4.78 uIU/mL White Blood Count 9.0 4.4-10.8 10^3/uL Red Blood Count 4.57 4.5-5.90 10^6/uL Hemoglobin 14.7 13.5-17.5 g/dL Hematocrit 43.9 41.0-53.0 % Mean Corpuscular Volume 96.0 80.0-100.0 fL Mean Corpuscular Hemoglobin 32.1 H 28.0-32.0 pg Mean Corpuscular Hemoglobin Concent 33.4 32.0-36.0 g/dL Red Cell Distribution Width 15.5 H 11.8-14.3 % Platelet Count 303 140-450 10^3/uL Mean Platelet Volume 7.8 6.9-10.8 fL Neutrophils (%) (Auto) 83.1 H 37.0-80.0 % Lymphocytes (%) (Auto) 7.5 L 10.0-50.0 % Monocytes (%) (Auto) 7.6 0.0-12.0 % Eosinophils (%) (Auto) 0.9 0.0-7.0 % Basophils (%) (Auto) 0.9 0.0-2.0 % Neutrophils # (Auto) 7.4 1.6-8.6 10 ^3/uL Lymphocytes # (Auto) 0.7 0.4-5.4 10 ^3/uL Monocytes # (Auto) 0.7 0-1.3 10 ^3/uL Eosinophils # (Auto) 0.1 0-0.8 10 ^3/uL Basophils # (Auto) 0.1 0-0.2 10 ^3/uL Nucleated Red Blood Cells 0.1 % Prothrombin Time 13.3 H 9.3-11.8 sec Prothrombin Time INR 1.29 H 0.9-1.15 Activated Partial Thromboplast Time 35.6 H 24.5-34.5 SEC Sodium Level 144 136-145 mmol/L Potassium Level 3.9 3.5-5.1 mmol/L Chloride Level 106 98-107 mmol/L Carbon Dioxide Level 27 20-31 mmol/L Anion Gap 11 5-15 Blood Urea Nitrogen 17 9-23 mg/dL Creatinine 0.88 0.700-1.30 mg/dL Glomerular Filtration Rate Calc 84 >90 mL/min BUN/Creatinine Ratio 19.3 10.0-20.0 Serum Glucose 116 H 74-106 mg/dL Hemoglobin A1c 5.5 <5.7 % A1C Calcium Level 9.7 8.7-10.4 mg/dL B-Type Natriuretic Peptide 813.06 0-100 pg/mL Triglycerides Level 65 < 150 mg/dL Cholesterol Level 111 < 200 mg/dL LDL Cholesterol 69 < 100 mg/dL HDL Cholesterol 28 L 40-59 mg/dL Assessment Atrial fibrillation with uncontrolled rate, likely persistent (on Eliquis) 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 Lu): * Transthoracic echocardiogram to evaluate cardiac function * Previous echocardiogram from 08/22/2023 reveals an EF of 40% with global hypokinesia, RVSP 36 mmHg * Initiate guideline directed medical therapy for CHF as tolerated * Switch metoprolol tartrate to metoprolol succinate as per GDMT guidelines * Strict intake and output, daily weights, maintain fluid restriction * Preload and afterload reduction * [id number] VASc score: 4 points, HAS-BLED score: 2 points * Continue NOAC therapy, Eliquis * Beta-vicky for rate control, up-titrate dose as needed * Loading dose digoxin * Avoid antiarrhythmic agent, given atrial fibrillation likely persistent * Monitor and replete electrolytes as needed, keep potassium greater than four and magnesium greater than two * Close Cardiac surveillance * Antibiotics per primary care team Thank you for allowing us to care for this patient. Please call with any questions or concerns. Critical care time spent: 44 minutes This medical document was created using an electronic medical record system with voice recognition software and computerized dictation system. Although this document has been carefully reviewed, there might still be some phonetic and typographical errors. Occasional wrong-word or ``sound-alike substitutions may have occurred due to the inherent limitations of voice recognition software. These areas are purely typographical due to imperfections of the software programs and do not reflect any compromise in the patient's medical care. Please read the chart carefully and recognize, using context, where these substitutions have occurred. Plan discussed with: Patient NYHA Physical activity limitations: Class3(Marked) ordinary (activity causes symtoms) Date of Service: Aug 24, 2024 Billing Provider: RADHA CHARLES Cardiology Common Codes: [id number] INP/OBS CARE (High) Cardiology Consultation Codes: [id number] CONSULT <45MIN RADHA CHARLES Aug 24, 2024 14:37
[2024-08-24] MEDS: DIGOXIN (250MCG/ML) 2 ML AMPULE IV ONE (15:48)
[2024-08-24] MEDS: ACCU-CHEK COMFORT CURVE STRIP VI SCH (17:00)
[2024-08-24] MEDS: InsuLIN REG 1unit/0.01ml Soln (100units/ml) SC SCH ×2 (17:00→21:19)
[2024-08-24] MEDS: APIXABAN 5 MG TAB PO SCH (21:21)
[2024-08-24] MEDS: methylPREDNISolone SOD SUCC 40 MG/ML VL IV SCH (21:22)
[2024-08-24] MEDS ORDERED: METOPROLOL TARTRATE 25 MG TAB PO SCH (22:00)
[2024-08-25] VITALS (16 sets, daily range): BP systolic 105–132; BP diastolic 47–70; PULSE 80–156; RESP 16–21; TEMP 96.4–98; O2SAT 93–99
[2024-08-25 06:04] LABS: Hemoglobin 14.5 g/dL (13.5-17.5); Mean Corpuscular Hemoglobin 32.4 pg (28.0-32.0); Mean Corpuscular Hgb Conc. 33.8 g/dL (32.0-36.0); Mean Corpuscular Volume 95.8 fL (80.0-100.0); Platelet Count (auto) 286 10^3/uL (140-450); Red Blood Cells 4.49 10^6/uL (4.5-5.90); Red Cell Distribution Width 14.9 % (11.8-14.3); White Blood Cell 6.6 10^3/uL (4.4-10.8)
[2024-08-25 06:17] LABS: Band Neutrophils % (manual) 0; Basophils % (manual) 0 (0.0-2.0); Blast Cells 0; Eosinophils % (manual) 0 (0-7); Metamyelocytes % 0; Myelocytes % 0; Promyelocytes % 0; Reactive Lymphocytes 0
[2024-08-25 06:22] LABS: Alanine Aminotransferase 18 U/L (7-40); Albumin 3.8 g/dL (3.2-4.8); Alkaline Phosphatase 69 U/L (46-116); Anion Gap 11 (5-15); Aspartate Aminotransferase 12 U/L (<34); Blood Urea Nitrogen 16 mg/dL (9-23); Calcium 9.2 mg/dL (8.7-10.4); Carbon Dioxide 27 mmol/L (20-31); Chloride 105 mmol/L (98-107); Potassium 4.3 mmol/L (3.5-5.1); Sodium 143 mmol/L (136-145); Total Protein 6.3 g/dL (5.7-8.2)
[2024-08-25 06:29] LABS: Glucose 133 mg/dL (74-106)
[2024-08-25 06:53] LABS: Lymphocytes % (manual) 1 (10.0-50.0); Monocytes % (manual) 1 (0-12); Platelet Estimate Adequate
[2024-08-25] MEDS: AZITHROMYCIN 500MG/ 250ML 250 ML IV SCH (08:51)
[2024-08-25] MEDS: FUROSEMIDE 20 MG/2 ML VIAL IV SCH (08:52)
[2024-08-25] MEDS: cefTRIAXone 1GM/50ML D5W 50 ML IV SCH (08:52)
[2024-08-25] MEDS: SPIRONOLACTONE 25 MG TAB PO SCH (08:53)
[2024-08-25] MEDS: EMPAGLIFLOZIN 10 MG TAB PO SCH (08:53)
[2024-08-25] MEDS: AMIODARONE BOLUS KIT 100 ML IV ONE (09:43)
[2024-08-25] MEDS: AMIODARONE 360mg/200mL PREMIX 200 ML IV ONE (09:45)
[2024-08-25] MEDS ORDERED: amLODIPine BESYLATE 5 MG TAB PO SCH (10:00)
--- NOTE | 2024-08-25 10:13 | ECG ---
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
--- NOTE | 2024-08-25 10:13 | ECG ---
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
[2024-08-25] MEDS: LISINOPRIL 20 MG TAB PO SCH (11:22)
[2024-08-25] MEDS: METOPROLOL SUCCINATE XL 50 MG TAB PO SCH (11:23)
--- NOTE | 2024-08-25 12:20 | DVHPN2 ---
Consult Progress Note Subjective Review of Systems: CVS:Abnormal (palpitations), RESPIRATORY:Abnormal (SOB), MSK:Abnormal (BLE edema) Objective vital signs Vital Sign Date Time Temp Pulse Resp B/P (MAP) Pulse Ox O2 Delivery O2 Flow Rate FiO2 08/25/24 11:52 94 18 99 08/25/24 11:23 146/65 08/25/24 10:00 Nasal Cannula* 4 36 08/25/24 09:06 98.0 98.0 Total Intake and Output 08/24/24 08/24/24 08/25/24 15:00 23:00 07:00 Intake Total 212.5 ml 25.0 ml 0 ml Output Total 301 ml 200 ml Balance 212.5 ml -276.0 ml -200 ml medications Current Medications Medications Dose Ordered Sig/Dejon Route Start Time Stop Time Status Last Admin Dose Admin Sodium Chloride 10 ml Q8HR IV 08/24/24 14:00 08/25/24 06:32 10 ML Acetaminophen/ Hydrocodone Bitart 1 tab Q4HP PRN PO 08/24/24 11:30 Ondansetron HCl 4 mg Q4HP PRN IV 08/24/24 11:30 Docusate Sodium 100 mg BIDPRN PRN PO 08/24/24 11:30 Acetaminophen 650 mg Q6HP PRN PO 08/24/24 11:30 Nitroglycerin 0.4 mg Q5MINP PRN SL 08/24/24 11:30 Morphine Sulfate 2 mg Q30M PRN IV 08/24/24 11:30 Furosemide 20 mg DAILY IV 08/25/24 10:00 08/25/24 08:52 20 MG Ceftriaxone Sodium 50 ml @ 100 mls/hr DAILY@09 IV 08/25/24 09:00 08/25/24 08:52 100 MLS/HR Azithromycin 250 ml @ 125 mls/hr DAILY IV 08/25/24 10:00 08/25/24 08:51 125 MLS/HR Apixaban 5 mg BID PO 08/24/24 22:00 08/25/24 08:53 5 MG Lisinopril 10 mg DAILY PO 08/25/24 10:00 08/25/24 11:22 10 MG Diagnostic Test (Pha) 1 strip ACHS 08/24/24 17:00 08/25/24 06:29 1 STRIP Insulin Human Regular HS SC 08/24/24 22:00 08/24/24 21:19 2 UNITS Insulin Human Regular AC SC 08/24/24 17:00 08/25/24 11:24 9 UNITS Dextrose 50 ml UD PRN IV 08/24/24 12:00 Ipratropium [place] 0.5 mg Q6HWA [facility] 08/24/24 12:00 08/25/24 11:42 0.5 MG Albuterol 2.5 mg Q6HWA [facility] 08/24/24 12:00 08/25/24 11:42 2.5 MG Methylprednisolone Sodium Succinate 40 mg BID IV 08/24/24 22:00 08/25/24 08:51 40 MG Empaglifozin 10 mg DAILY PO 08/25/24 10:00 08/25/24 08:53 10 MG Spironolactone 25 mg DAILY PO 08/25/24 10:00 08/25/24 08:53 25 MG Metoprolol Succinate 50 mg DAILY PO 08/25/24 10:00 08/25/24 11:23 50 MG Examination: LUNGS:Abnormal (rales, crackles), CVS:Abnormal (Atrial Fibrillation with RVR, (HR 150's)), MSK:Abnormal (+2 BLE edema) laboratory and microbiology Laboratory Tests 08/25/24 04:49 Test 08/25/24 04:49 Range/Units Serum Glucose 133 H 74-106 mg/dL Problem List/Assessment/Plan Problem List/Assessment/Plan Assessment Atrial fibrillation with uncontrolled rate, likely persistent (on Eliquis) 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 Lu): * Follow up echo. * Previous echocardiogram from 08/22/2023 reveals an EF of 40% with global hypokinesia, RVSP 36 mmHg * Initiate guideline directed medical therapy for CHF as tolerated * Continue metoprolol succinate as per GDMT guidelines * Strict intake and output, daily weights, maintain fluid restriction * Preload and afterload reduction * [id number] VASc score: 4 points, HAS-BLED score: 2 points * Continue NOAC therapy, Eliquis * Beta-vicky for rate control, up-titrate dose as needed * Loading dose digoxin * Avoid antiarrhythmic agent, given atrial fibrillation likely persistent * Monitor and replete electrolytes as needed, keep potassium greater than four and magnesium greater than two * Close Cardiac surveillance * Antibiotics per primary care team Case Discussed with Dr Lu. Continue diuresis and fluid restriction. Follow up echo. Patient's heart rate sustaining in the 150s this morning, patient placed on amiodarone drip per protocol, continue monitoring. Continue metoprolol and titrate as BP tolerates. Critical care, time spent: 40 minutes This medical document was created using an electronic medical record system with voice recognition software and computerized dictation system. Although this document has been carefully reviewed, there might still be some phonetic and typographical errors. Occasional wrong-word or ``sound-alike substitutions may have occurred due to the inherent limitations of voice recognition software. These areas are purely typographical due to imperfections of the software programs and do not reflect any compromise in the patient's medical care. Please read the chart carefully and recognize, using context, where these substitutions have occurred. Thank you for allowing me to participate in the management of this patient. The treatment plan was discussed with and agreed upon by patient/family including requesting consultants and ordering of imaging/procedures. Plan discussed with: Patient Date of Service: Aug 25, 2024 Billing Provider: FERNANDEZ POTTS Common Visit Codes: [id number] INP/OBS CARE(HIGH), 88993-[id number] CARE 30-74 MIN FERNANDEZ POTTS Aug 25, 2024 12:20
--- NOTE | 2024-08-25 12:42 | DVHPN2 ---
Reviewed: Care Plan, H&P, Labs, Medications, Previous Orders, Radiology Changes from previous H/P or p: No Changes Eyes: No Pain, No Vision change, No Conjunctivae inflammation, No Eyelid inflammation, No Other, No Redness ENT: No Ear pain, No Ear discharge, No Nose pain, No Nose discharge, No Nose congestion, No Mouth pain, No Mouth swelling, No Throat pain, No Throat swelling, No Other Cardiovascular: No Chest Pain; Palpitations; No Orthopnea, No Paroxysmal Noc. Dyspnea, No Edema, No Lt Headedness, No Other Respiratory: No Cough, No Dry; Shortness of breath, SOB with excertion, W heezing; No Hemoptysis, No Pleuritic Pain, No Sputum, No Other Gastrointestinal: No Nausea, No Vomiting, No Abdominal Pain, No Diarrhea, No Constipation, No Melena, No Hematochezia, No Other Genitourinary: No Dysuria, No Frequency, No Incontinence, No Hematuria, No Retention, No Other Musculoskeletal: No other, No neck pain, No shoulder pain, No arm pain, No back pain, No hand pain, No leg pain, No foot pain Skin: No Rash, No Lesions, No Jaundice, No Bruising, No Other Objective Vitals Vital Signs Date Time Temp Pulse Resp B/P (MAP) Pulse Ox O2 Delivery O2 Flow Rate FiO2 08/25/24 11:52 94 18 99 08/25/24 11:23 146/65 08/25/24 10:00 Nasal Cannula* 4 36 08/25/24 09:06 98.0 98.0 Intake/Output Intake and Output 08/25/24 07:00 Intake Total 237.5 ml Output Total 501 ml Balance -263.5 ml Intake Oral 0 ml IV Total 237.5 ml Output Urine Total 500 ml Stool Total 1 ml Medications Current Medications Medications Dose Ordered Sig/Dejon Route Start Time Stop Time Status Last Admin Dose Admin Sodium Chloride 10 ml Q8HR IV 08/24/24 14:00 08/25/24 06:32 10 ML Acetaminophen/ Hydrocodone Bitart 1 tab Q4HP PRN PO 08/24/24 11:30 Ondansetron HCl 4 mg Q4HP PRN IV 08/24/24 11:30 Docusate Sodium 100 mg BIDPRN PRN PO 08/24/24 11:30 Acetaminophen 650 mg Q6HP PRN PO 08/24/24 11:30 Nitroglycerin 0.4 mg Q5MINP PRN SL 08/24/24 11:30 Morphine Sulfate 2 mg Q30M PRN IV 08/24/24 11:30 Furosemide 20 mg DAILY IV 08/25/24 10:00 08/25/24 08:52 20 MG Ceftriaxone Sodium 50 ml @ 100 mls/hr DAILY@09 IV 08/25/24 09:00 08/25/24 08:52 100 MLS/HR Azithromycin 250 ml @ 125 mls/hr DAILY IV 08/25/24 10:00 08/25/24 08:51 125 MLS/HR Apixaban 5 mg BID PO 08/24/24 22:00 08/25/24 08:53 5 MG Lisinopril 10 mg DAILY PO 08/25/24 10:00 08/25/24 11:22 10 MG Diagnostic Test (Pha) 1 strip ACHS 08/24/24 17:00 08/25/24 06:29 1 STRIP Insulin Human Regular HS SC 08/24/24 22:00 08/24/24 21:19 2 UNITS Insulin Human Regular AC SC 08/24/24 17:00 08/25/24 11:24 9 UNITS Dextrose 50 ml UD PRN IV 08/24/24 12:00 Ipratropium [place] 0.5 mg Q6HWA NE[facility] 08/24/24 12:00 08/25/24 11:42 0.5 MG Albuterol 2.5 mg Q6HWA NEB 08/24/24 12:00 08/25/24 11:42 2.5 MG Methylprednisolone Sodium Succinate 40 mg BID IV 08/24/24 22:00 08/25/24 08:51 40 MG Empaglifozin 10 mg DAILY PO 08/25/24 10:00 08/25/24 08:53 10 MG Spironolactone 25 mg DAILY PO 08/25/24 10:00 08/25/24 08:53 25 MG Metoprolol Succinate 50 mg DAILY PO 08/25/24 10:00 08/25/24 11:23 50 MG Laboratory Results Laboratory Tests 08/25/24 04:49 Chemistry Test 08/25/24 04:49 Albumin 3.8 g/dL (3.2-4.8) Calcium Level 9.2 mg/dL (8.7-10.4) Total Protein 6.3 g/dL (5.7-8.2) LFT Test 08/25/24 04:49 Alanine Aminotransferase (ALT) 18 U/L (7-40) Alkaline Phosphatase 69 U/L (46-116) Aspartate Amino Transferase (AST) 12 U/L (<34) Total Bilirubin 1.0 mg/dL (0.2-1.0) Microbiology Microbiology Date/Time Source Procedure Growth Status 08/24/24 11:49 Blood Blood Culture - Preliminary NO GROWTH AFTER 24 HOURS OF INCUBATION. Resulted Labs and/or images reviewed: Labs reviewed by me, Image(s) reviewed by me Assessment/Plan Assessment/Plan Acute hypoxic Respiratory failure secondary to pneumonia: Oxygen by nasal cannula Acute right lower lobe pneumonia Gram-positive versus gm neg Rocephin azithromycin albuterol Atrovent med neb No pleural effusions Atrial fibrillation with uncontrolled rate, likely persistent (on Eliquis) , amiodarone drip Acute on chronic decompensated HFrEF, NYHA class III (last echo 08/22/23) cardiology consult appreciated Moderately severe mitral valve regurgitation Mild to moderate tricuspid regurgitation History of lung cancer status post left lower lobe lobectomy and radiation Tobacco use DVT ruled out Blood cultures negative Patient worked in the [employer] for four years Time spent 70 minutes Advanced care time 20 minutes Patient is full code Plan discussed with: Patient Date of Service: Aug 25, 2024 Billing Provider: AIDA HERNÁNDEZ MD Common Visit Codes: [id number] CARE 30-74 MIN AIDA HERNÁNDEZ MD Aug 25, 2024 12:42
[2024-08-25] MEDS: AMIODARONE 360mg/200mL PREMIX 200 ML IV SCH (14:38)
--- NOTE | 2024-08-25 17:22 | DVHSR ---
APPROVED REPORT EXAM: Two-dimensional and M-mode echocardiogram with Doppler and color Doppler. Blood Pressure: 146/80 mmHg INDICATION Acute CHF exacerbation RISK FACTORS Height: 68, Weight: 220 DIMENSIONS LVDd4.4 (3.8-5.7cm)LA (2D)4.8 (1.9-4.0cm)Aortic Root3.7 (2.0-3.7cm) LVDs3.8 (2.5-4.0cm)LA (MM) (1.9-4.0cm)Aortic Cusp Exc0.7 (1.5-2.0cm) EF (%) 30.0 (55-70%)Rt. Atrium6.6 (1.9-4.0cm)Asc. Aorta cm IVSd1.3 (0.7-1.1cm)RV (D) (1.8-2.4cm) PWd1.3 (0.7-1.1cm) Mitral Valve MitralMitral Stenosis E wave1.08m/sMV Mean GR.mmHg A wavem/sMV Peak GR.129mmHg E/A ratio0.02D MVAcm2 Aortic Valve Aortic ValveAortic Stenosis V10.63m/Desirae Mean GR.9mmHg V22.09m/Desirae Peak GR.18mmHg LVOT Diameter2.6 (1.8-2.4cm)Doppler AVA1.60cm2 AI P 1/2 Fdif724.63ms Tricuspid Valve TR Velocity3.44m/s [id number] Other Information Technically limited study due to body habitus, patient position and high heart rate. Conclusion Atrial fibrillation. Concentric LVH with biatrial enlargement. Aortic root enlargement. Moderate aortic sclerosis. Moderate aortic leaflet calcification. Mild mitral annular calcification . Calcified base of the posterior mitral leaflet. Left ventricular function is diminished. EF is about 30% with global hypokinesis. Mildly diminished RV function. Moderate MR. Moderate to severe tricuspid insufficiency. Moderate aortic insufficiency. No pericardial effusion masses or vegetations.
[2024-08-26] VITALS (15 sets, daily range): BP systolic 105–142; BP diastolic 51–66; PULSE 80–143; RESP 16–24; TEMP 97.5–98.3; O2SAT 94–100
[2024-08-26 08:20] LABS: Alanine Aminotransferase 20 U/L (7-40); Albumin 3.5 g/dL (3.2-4.8); Alkaline Phosphatase 60 U/L (46-116); Anion Gap 10 (5-15); Aspartate Aminotransferase 13 U/L (<34); BUN/Creatinine Ratio 22.1 (10.0-20.0); Blood Urea Nitrogen 19 mg/dL (9-23); Carbon Dioxide 26 mmol/L (20-31); Chloride 104 mmol/L (98-107); Magnesium 1.9 mg/dL (1.6-2.6); Potassium 4.2 mmol/L (3.5-5.1); Sodium 140 mmol/L (136-145); Total Protein 5.9 g/dL (5.7-8.2)
[2024-08-26 08:21] LABS: Bilirubin, Total 0.6 mg/dL (0.2-1.0)
[2024-08-26 08:23] LABS: Glucose 144 mg/dL (74-106)
[2024-08-26] MEDS: DIGOXIN (250MCG/ML) 2 ML AMPULE IV ONE (09:40)
--- NOTE | 2024-08-26 09:59 | DVHPN2 ---
Consult Progress Note Subjective Patient reports: Feels better Review of Systems: RESPIRATORY:Abnormal (sob) Objective vital signs Vital Sign Date Time Temp Pulse Resp B/P (MAP) Pulse Ox O2 Delivery O2 Flow Rate FiO2 08/26/24 09:43 142/66 08/26/24 09:42 131 08/26/24 07:28 24 99 08/26/24 07:20 Nasal Cannula 3.0 08/26/24 07:20 32 08/26/24 05:00 97.6 97.6 Total Intake and Output 08/25/24 08/25/24 08/26/24 15:00 23:00 07:00 Intake Total 480 ml 1610 ml 240 ml Output Total 601 ml 500 ml Balance 480 ml 1009 ml -260 ml medications Current Medications Medications Dose Ordered Sig/Dejon Route Start Time Stop Time Status Last Admin Dose Admin Sodium Chloride 10 ml Q8HR IV 08/24/24 14:00 08/26/24 06:20 10 ML Acetaminophen/ Hydrocodone Bitart 1 tab Q4HP PRN PO 08/24/24 11:30 Ondansetron HCl 4 mg Q4HP PRN IV 08/24/24 11:30 Docusate Sodium 100 mg BIDPRN PRN PO 08/24/24 11:30 Acetaminophen 650 mg Q6HP PRN PO 08/24/24 11:30 Nitroglycerin 0.4 mg Q5MINP PRN SL 08/24/24 11:30 Morphine Sulfate 2 mg Q30M PRN IV 08/24/24 11:30 Furosemide 20 mg DAILY IV 08/25/24 10:00 08/26/24 09:41 20 MG Ceftriaxone Sodium 50 ml @ 100 mls/hr DAILY@09 IV 08/25/24 09:00 08/26/24 09:40 100 MLS/HR Azithromycin 250 ml @ 125 mls/hr DAILY IV 08/25/24 10:00 08/25/24 08:51 125 MLS/HR Apixaban 5 mg BID PO 08/24/24 22:00 08/26/24 09:41 5 MG Lisinopril 10 mg DAILY PO 08/25/24 10:00 08/26/24 09:43 10 MG Diagnostic Test (Pha) 1 strip ACHS 08/24/24 17:00 08/26/24 06:20 1 STRIP Insulin Human Regular HS SC 08/24/24 22:00 08/25/24 21:50 4 UNITS Insulin Human Regular AC SC 08/24/24 17:00 08/26/24 06:20 2 UNITS Dextrose 50 ml UD PRN IV 08/24/24 12:00 Ipratropium [place] 0.5 mg Q6HWA [facility] 08/24/24 12:00 08/26/24 07:20 0.5 MG Albuterol 2.5 mg Q6HWA [facility] 08/24/24 12:00 08/26/24 07:20 2.5 MG Methylprednisolone Sodium Succinate 40 mg BID IV 08/24/24 22:00 08/26/24 09:40 40 MG Empaglifozin 10 mg DAILY PO 08/25/24 10:00 08/25/24 08:53 10 MG Spironolactone 25 mg DAILY PO 08/25/24 10:00 08/26/24 09:41 25 MG Metoprolol Succinate 50 mg DAILY PO 08/25/24 10:00 08/26/24 09:42 50 MG Examination: CVS:Abnormal (Telemetry consistent with atrial fibrillation controlled overnight though noted to be in RVR to 128 this morning.), MSK:Abnormal (+1 BLE edema) laboratory and microbiology Laboratory Tests 08/26/24 07:29 08/25/24 04:49 Test 08/26/24 07:29 Range/Units Serum Glucose 144 H 74-106 mg/dL Problem List/Assessment/Plan Problem List/Assessment/Plan Assessment Atrial fibrillation with uncontrolled rate, likely persistent (on Eliquis) 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 Lu): * Echo reviewed, EF 30% with global hypokinesis. Moderate aortic sclerosis with moderate aortic insufficiency. Severe TR, moderate MR. * Continue guideline directed medical therapy for CHF as tolerated * Strict intake and output, daily weights, maintain fluid restriction * Preload and afterload reduction * [id number] VASc score: 4 points, HAS-BLED score: 2 points * Continue NOAC therapy, Eliquis * Beta-vicky for rate control, up-titrate dose as needed * Monitor and replete electrolytes as needed, keep potassium greater than four and magnesium greater than two * Close Cardiac surveillance * Antibiotics per primary care team Case Discussed with Dr Lu. Continue diuresis and fluid restriction. Echo with EF 30%, global hypokinesis, moderate aortic sclerosis, aortic insufficiency. Severe TR, moderate MR. Continue on amiodarone, continue monitoring. Continue metoprolol and titrate as BP tolerates. Heart rate continued to be in RVR in 120s to 130s this a.m., continue amiodarone drip, digoxin 500 mcg IV x1 given. Metoprolol switched from 50 mg succinate daily to metoprolol tartrate 50 mg p.o. twice daily for better rate control. Critical care, time spent: 40 minutes This medical document was created using an electronic medical record system with voice recognition software and computerized dictation system. Although this document has been carefully reviewed, there might still be some phonetic and typographical errors. Occasional wrong-word or ``sound-alike substitutions may have occurred due to the inherent limitations of voice recognition software. These areas are purely typographical due to imperfections of the software programs and do not reflect any compromise in the patient's medical care. Please read the chart carefully and recognize, using context, where these substitutions have occurred. Thank you for allowing me to participate in the management of this patient. The treatment plan was discussed with and agreed upon by patient/family including requesting consultants and ordering of imaging/procedures. Plan discussed with: Patient Date of Service: Aug 26, 2024 Billing Provider: FERNANDEZ POTTS Common Visit Codes: [id number] INP/OBS CARE(HIGH), [id number] CARE 30-74 MIN FERNANDEZ POTTS Aug 26, 2024 09:59
--- NOTE | 2024-08-26 11:25 | DVHPN2 ---
Reviewed: Care Plan, H&P, Labs, Medications, Previous Orders, Radiology Changes from previous H/P or p: No Changes Eyes: No Pain, No Vision change, No Conjunctivae inflammation, No Eyelid inflammation, No Other, No Redness ENT: No Ear pain, No Ear discharge, No Nose pain, No Nose discharge, No Nose congestion, No Mouth pain, No Mouth swelling, No Throat pain, No Throat swelling, No Other Cardiovascular: No Chest Pain; Palpitations; No Orthopnea, No Paroxysmal Noc. Dyspnea, No Edema, No Lt Headedness, No Other Respiratory: No Cough, No Dry; Shortness of breath, SOB with excertion, W heezing; No Hemoptysis, No Pleuritic Pain, No Sputum, No Other Gastrointestinal: No Nausea, No Vomiting, No Abdominal Pain, No Diarrhea, No Constipation, No Melena, No Hematochezia, No Other Genitourinary: No Dysuria, No Frequency, No Incontinence, No Hematuria, No Retention, No Other Musculoskeletal: No other, No neck pain, No shoulder pain, No arm pain, No back pain, No hand pain, No leg pain, No foot pain Skin: No Rash, No Lesions, No Jaundice, No Bruising, No Other Objective Vitals Vital Signs Date Time Temp Pulse Resp B/P (MAP) Pulse Ox O2 Delivery O2 Flow Rate FiO2 08/26/24 09:43 142/66 08/26/24 09:42 131 08/26/24 07:28 24 99 08/26/24 07:20 Nasal Cannula 3.0 08/26/24 07:20 32 08/26/24 05:00 97.6 97.6 Intake/Output Intake and Output 08/26/24 07:00 Intake Total 2330 ml Output Total 1101 ml Balance 1229 ml Intake Oral 1680 ml IV Total 650 ml Output Urine Total 1100 ml Stool Total 1 ml # Bowel Movements 1 Medications Current Medications Medications Dose Ordered Sig/Dejon Route Start Time Stop Time Status Last Admin Dose Admin Sodium Chloride 10 ml Q8HR IV 08/24/24 14:00 08/26/24 06:20 10 ML Acetaminophen/ Hydrocodone Bitart 1 tab Q4HP PRN PO 08/24/24 11:30 Ondansetron HCl 4 mg Q4HP PRN IV 08/24/24 11:30 Docusate Sodium 100 mg BIDPRN PRN PO 08/24/24 11:30 Acetaminophen 650 mg Q6HP PRN PO 08/24/24 11:30 Nitroglycerin 0.4 mg Q5MINP PRN SL 08/24/24 11:30 Morphine Sulfate 2 mg Q30M PRN IV 08/24/24 11:30 Furosemide 20 mg DAILY IV 08/25/24 10:00 08/26/24 09:41 20 MG Ceftriaxone Sodium 50 ml @ 100 mls/hr DAILY@09 IV 08/25/24 09:00 08/26/24 09:40 100 MLS/HR Azithromycin 250 ml @ 125 mls/hr DAILY IV 08/25/24 10:00 08/26/24 10:57 125 MLS/HR Apixaban 5 mg BID PO 08/24/24 22:00 08/26/24 09:41 5 MG Diagnostic Test (Pha) 1 strip ACHS 08/24/24 17:00 08/26/24 06:20 1 STRIP Insulin Human Regular HS SC 08/24/24 22:00 08/25/24 21:50 4 UNITS Insulin Human Regular AC SC 08/24/24 17:00 08/26/24 06:20 2 UNITS Dextrose 50 ml UD PRN IV 08/24/24 12:00 Ipratropium [place] 0.5 mg Q6HWA NEB 08/24/24 12:00 08/26/24 07:20 0.5 MG Albuterol 2.5 mg Q6HWA NEB 08/24/24 12:00 08/26/24 07:20 2.5 MG Methylprednisolone Sodium Succinate 40 mg BID IV 08/24/24 22:00 08/26/24 09:40 40 MG Empaglifozin 10 mg DAILY PO 08/25/24 10:00 08/26/24 09:52 10 MG Spironolactone 25 mg DAILY PO 08/25/24 10:00 08/26/24 09:41 25 MG Metoprolol Tartrate 50 mg BID PO 08/26/24 22:00 Lisinopril 5 mg DAILY PO 08/27/24 10:00 Laboratory Results Laboratory Tests 08/25/24 04:49 08/26/24 07:29 Chemistry Test 08/26/24 07:29 Albumin 3.5 g/dL (3.2-4.8) Calcium Level 9.0 mg/dL (8.7-10.4) Magnesium Level 1.9 mg/dL (1.6-2.6) Total Protein 5.9 g/dL (5.7-8.2) Cardiac Markers Test 08/26/24 07:29 B-Type Natriuretic Peptide 574.25 pg/mL (0-100) LFT Test 08/26/24 07:29 Alanine Aminotransferase (ALT) 20 U/L (7-40) Alkaline Phosphatase 60 U/L (46-116) Aspartate Amino Transferase (AST) 13 U/L (<34) Total Bilirubin 0.6 mg/dL (0.2-1.0) Microbiology Microbiology Date/Time Source Procedure Growth Status 08/24/24 11:49 Blood Blood Culture - Preliminary NO GROWTH AFTER 24 HOURS OF INCUBATION. Resulted Labs and/or images reviewed: Labs reviewed by me, Image(s) reviewed by me Assessment/Plan Assessment/Plan Acute hypoxic Respiratory failure secondary to pneumonia: Oxygen by nasal cannula Acute right lower lobe pneumonia Gram-positive versus gm neg Rocephin azithromycin albuterol Atrovent med neb No pleural effusions Atrial fibrillation with uncontrolled rate, likely persistent , continue Eliquis , amiodarone drip, one dose digoxin given, metoprolol tartrate 50 mg p.o. b.i.d. 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
[2024-08-26] MEDS: HYALURONIDASE 150 UNIT/1 ML SUBCUT ONE (17:20)
[2024-08-26] MEDS: METOPROLOL TARTRATE 50 MG TAB PO SCH (21:56)
[2024-08-27] VITALS (15 sets, daily range): BP systolic 96–167; BP diastolic 66–85; PULSE 58–120; RESP 16–19; TEMP 96.1–97.6; O2SAT 92–99
[2024-08-27] MEDS: LISINOPRIL 5 MG TAB PO SCH (09:50)
[2024-08-27 10:33] LABS: Anion Gap 9 (5-15); Carbon Dioxide 28 mmol/L (20-31); Chloride 102 mmol/L (98-107); Potassium 4.1 mmol/L (3.5-5.1); Sodium 139 mmol/L (136-145)
[2024-08-27 10:34] LABS: Calcium 8.6 mg/dL (8.7-10.4)
[2024-08-27 10:39] LABS: BUN/Creatinine Ratio 27.1 (10.0-20.0); Blood Urea Nitrogen 23 mg/dL (9-23)
[2024-08-27 10:40] LABS: Magnesium 1.8 mg/dL (1.6-2.6)
[2024-08-27 10:44] LABS: Glucose 219 mg/dL (74-106)
--- NOTE | 2024-08-27 12:16 | ECG ---
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
--- NOTE | 2024-08-27 12:19 | DVHPN2 ---
Consult Progress Note Date Seen: Aug 27, 2024 Subjective Review of Systems: CVS:Normal, RESPIRATORY:Normal, NEURO:Normal Objective vital signs Vital Sign Date Time Temp Pulse Resp B/P (MAP) Pulse Ox O2 Delivery O2 Flow Rate FiO2 08/27/24 10:00 95 Nasal Cannula 4.0 08/27/24 10:00 36 08/27/24 09:51 77 116/76 08/27/24 08:30 97.6 19 97.6 Total Intake and Output 08/26/24 08/26/24 08/27/24 15:00 23:00 07:00 Intake Total 500 ml 583.3 ml 600 ml Balance 500 ml 583.3 ml 600 ml medications Current Medications Medications Dose Ordered Sig/Dejon Route Start Time Stop Time Status Last Admin Dose Admin Sodium Chloride 10 ml Q8HR IV 08/24/24 14:00 08/27/24 11:37 10 ML Acetaminophen/ Hydrocodone Bitart 1 tab Q4HP PRN PO 08/24/24 11:30 Ondansetron HCl 4 mg Q4HP PRN IV 08/24/24 11:30 Docusate Sodium 100 mg BIDPRN PRN PO 08/24/24 11:30 Acetaminophen 650 mg Q6HP PRN PO 08/24/24 11:30 Nitroglycerin 0.4 mg Q5MINP PRN SL 08/24/24 11:30 Morphine Sulfate 2 mg Q30M PRN IV 08/24/24 11:30 Furosemide 20 mg DAILY IV 08/25/24 10:00 08/27/24 09:49 20 MG Ceftriaxone Sodium 50 ml @ 100 mls/hr DAILY@09 IV 08/25/24 09:00 08/27/24 09:48 100 MLS/HR Azithromycin 250 ml @ 125 mls/hr DAILY IV 08/25/24 10:00 08/27/24 09:48 125 MLS/HR Apixaban 5 mg BID PO 08/24/24 22:00 08/27/24 09:50 5 MG Diagnostic Test (Pha) 1 strip ACHS 08/24/24 17:00 08/27/24 11:36 1 STRIP Insulin Human Regular HS SC 08/24/24 22:00 08/26/24 21:55 4 UNITS Insulin Human Regular AC SC 08/24/24 17:00 08/27/24 11:37 6 UNITS Dextrose 50 ml UD PRN IV 08/24/24 12:00 Ipratropium [place] 0.5 mg Q6HWA [facility] 08/24/24 12:00 08/27/24 11:36 0.5 MG Albuterol 2.5 mg Q6HWA [facility] 08/24/24 12:00 08/27/24 11:36 2.5 MG Methylprednisolone Sodium Succinate 40 mg BID IV 08/24/24 22:00 08/27/24 09:49 40 MG Empaglifozin 10 mg DAILY PO 08/25/24 10:00 08/27/24 09:50 10 MG Spironolactone 25 mg DAILY PO 08/25/24 10:00 08/27/24 09:50 25 MG Metoprolol Tartrate 50 mg BID PO 08/26/24 22:00 08/27/24 09:51 50 MG Lisinopril 5 mg DAILY PO 08/27/24 10:00 08/27/24 09:50 5 MG Examination: LUNGS:Abnormal (Diminished BLS. O2 via NC), CVS:Normal (A-fib controlled rate 80s-90s bpm), MSK:Abnormal (BLE edema R>L ++), NEURO:Normal laboratory and microbiology Laboratory Tests 08/27/24 09:52 08/25/24 04:49 Test 08/27/24 09:52 Range/Units Serum Glucose 219 H 74-106 mg/dL Problem List/Assessment/Plan Problem List/Assessment/Plan Atrial fibrillation with RVR, now controlled rate, likely persistent (on Eliquis) Acute on chronic decompensated HFrEF, NYHA class III Mitral valve regurgitation, moderate degree Tricuspid valve regurgitation, severe degree Acute respiratory failure secondary to pneumonia History of lung cancer status post left lower lobe lobectomy and radiation Tobacco use Plan/Recommendation (Dr. Lu) * Echo reviewed, EF 30% with global hypokinesis. * Moderate aortic sclerosis with moderate aortic insufficiency. Severe TR, moderate MR. * Continue guideline directed medical therapy for CHF as tolerated * Strict intake and output, daily weights, maintain fluid restriction * Preload and afterload reduction * Continue NOAC therapy, Eliquis * [id number] VASc score: 4 points, HAS-BLED score: 2 points * Beta-vicky BID and digoxin therapy EOD for rate control * Antiarrhythmic, discontinue amiodarone drip given persistent a-fib * Monitor and replete electrolytes as needed, K>4 and Mg >2 * Antibiotics per primary care team * Close Cardiac surveillance Thank you for allowing me to participate in the management of this patient. The treatment plan was discussed with and agreed upon by patient/family including requesting consultants and ordering of imaging/procedures. This medical document was created using an electronic medical record system with voice recognition software and computerized dictation system. Although this document has been carefully reviewed, there might still be some phonetic and typographical errors. Occasional wrong-word or ``sound-alike substitutions may have occurred due to the inherent limitations of voice recognition software. These areas are purely typographical due to imperfections of the software programs and do not reflect any compromise in the patient's medical care. Please read the chart carefully and recognize, using context, where these substitutions have occurred. Plan discussed with: Patient, Other Date of Service: Aug 27, 2024 Billing Provider: GERALDINE RODAS Cardiology Common Codes: [id number] CARE(High GERALDINE RODAS Aug 27, 2024 12:19
--- NOTE | 2024-08-27 13:17 | DVHPN2 ---
Reviewed: Care Plan, H&P, Labs, Medications, Previous Orders, Radiology Changes from previous H/P or p: No Changes Eyes: No Pain, No Vision change, No Conjunctivae inflammation, No Eyelid inflammation, No Other, No Redness ENT: No Ear pain, No Ear discharge, No Nose pain, No Nose discharge, No Nose congestion, No Mouth pain, No Mouth swelling, No Throat pain, No Throat swelling, No Other Cardiovascular: No Chest Pain; Palpitations; No Orthopnea, No Paroxysmal Noc. Dyspnea, No Edema, No Lt Headedness, No Other Respiratory: No Cough, No Dry; Shortness of breath, SOB with excertion, W heezing; No Hemoptysis, No Pleuritic Pain, No Sputum, No Other Gastrointestinal: No Nausea, No Vomiting, No Abdominal Pain, No Diarrhea, No Constipation, No Melena, No Hematochezia, No Other Genitourinary: No Dysuria, No Frequency, No Incontinence, No Hematuria, No Retention, No Other Musculoskeletal: No other, No neck pain, No shoulder pain, No arm pain, No back pain, No hand pain, No leg pain, No foot pain Skin: No Rash, No Lesions, No Jaundice, No Bruising, No Other Objective Vitals Vital Signs Date Time Temp Pulse Resp B/P (MAP) Pulse Ox O2 Delivery O2 Flow Rate FiO2 08/27/24 11:36 58 16 92 08/27/24 11:36 Nasal Cannula* 3 32 08/27/24 09:51 116/76 08/27/24 08:30 97.6 97.6 Intake/Output Intake and Output 08/27/24 07:00 Intake Total 1683.3 ml Balance 1683.3 ml Intake Oral 1100 ml IV Total 583.3 ml # Voids 13 # Bowel Movements 4 Medications Current Medications Medications Dose Ordered Sig/Dejon Route Start Time Stop Time Status Last Admin Dose Admin Sodium Chloride 10 ml Q8HR IV 08/24/24 14:00 08/27/24 11:37 10 ML Acetaminophen/ Hydrocodone Bitart 1 tab Q4HP PRN PO 08/24/24 11:30 Ondansetron HCl 4 mg Q4HP PRN IV 08/24/24 11:30 Docusate Sodium 100 mg BIDPRN PRN PO 08/24/24 11:30 Acetaminophen 650 mg Q6HP PRN PO 08/24/24 11:30 Nitroglycerin 0.4 mg Q5MINP PRN SL 08/24/24 11:30 Morphine Sulfate 2 mg Q30M PRN IV 08/24/24 11:30 Ceftriaxone Sodium 50 ml @ 100 mls/hr DAILY@09 IV 08/25/24 09:00 08/27/24 09:48 100 MLS/HR Azithromycin 250 ml @ 125 mls/hr DAILY IV 08/25/24 10:00 08/27/24 09:48 125 MLS/HR Apixaban 5 mg BID PO 08/24/24 22:00 08/27/24 09:50 5 MG Diagnostic Test (Pha) 1 strip ACHS 08/24/24 17:00 08/27/24 11:36 1 STRIP Insulin Human Regular HS SC 08/24/24 22:00 08/26/24 21:55 4 UNITS Insulin Human Regular AC SC 08/24/24 17:00 08/27/24 11:37 6 UNITS Dextrose 50 ml UD PRN IV 08/24/24 12:00 Ipratropium [place] 0.5 mg Q6HWA NEB 08/24/24 12:00 08/27/24 11:36 0.5 MG Albuterol 2.5 mg Q6HWA NEB 08/24/24 12:00 08/27/24 11:36 2.5 MG Methylprednisolone Sodium Succinate 40 mg BID IV 08/24/24 22:00 08/27/24 09:49 40 MG Empaglifozin 10 mg DAILY PO 08/25/24 10:00 08/27/24 09:50 10 MG Spironolactone 25 mg DAILY PO 08/25/24 10:00 08/27/24 09:50 25 MG Metoprolol Tartrate 50 mg BID PO 08/26/24 22:00 08/27/24 09:51 50 MG Lisinopril 5 mg DAILY PO 08/27/24 10:00 08/27/24 09:50 5 MG Furosemide 20 mg BIDD IV 08/27/24 18:00 Digoxin 0.125 mg EOD PO 08/29/24 10:00 Laboratory Results Laboratory Tests 08/25/24 04:49 08/27/24 09:52 Chemistry Test 08/27/24 09:52 Calcium Level 8.6 mg/dL (8.7-10.4) L Magnesium Level 1.8 mg/dL (1.6-2.6) Microbiology Microbiology Date/Time Source Procedure Growth Status 08/24/24 11:49 Blood Blood Culture - Preliminary NO GROWTH AFTER 72 HOURS OF INCUBATION. Resulted Labs and/or images reviewed: Labs reviewed by me, Image(s) reviewed by me Assessment/Plan Assessment/Plan Acute hypoxic Respiratory failure secondary to pneumonia: Oxygen by nasal cannula Acute right lower lobe pneumonia Gram-positive versus gm neg Rocephin azithromycin albuterol Atrovent med neb No pleural effusions Atrial fibrillation with uncontrolled rate, likely persistent , continue Eliquis , amiodarone drip, one dose digoxin given, metoprolol tartrate 50 mg p.o. b.i.d. convert amiodarone IV to p.o. 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
[2024-08-27] MEDS: MAGNESIUM SULFATE 1GM/100ML 100 ML IV ONE (15:28)
[2024-08-27] MEDS: FUROSEMIDE 20 MG/2 ML VIAL IV SCH (18:00)
[2024-08-28] VITALS (15 sets, daily range): BP systolic 121–167; BP diastolic 41–79; PULSE 70–125; RESP 16–19; TEMP 96.1–98.1; O2SAT 91–100
[2024-08-28 07:31] LABS: Anion Gap 10 (5-15); Carbon Dioxide 29 mmol/L (20-31); Chloride 99 mmol/L (98-107); Sodium 138 mmol/L (136-145)
[2024-08-28 07:34] LABS: Calcium 8.2 mg/dL (8.7-10.4)
[2024-08-28 07:38] LABS: BUN/Creatinine Ratio 27.6 (10.0-20.0); Glucose 98 mg/dL (74-106); Magnesium 2.3 mg/dL (1.6-2.6)
[2024-08-28 07:40] LABS: Blood Urea Nitrogen 24 mg/dL (9-23)
--- NOTE | 2024-08-28 09:23 | DVHPN2 ---
Consult Progress Note Date Seen: Aug 28, 2024 Subjective Review of Systems: CVS:Normal, RESPIRATORY:Normal, NEURO:Normal Objective vital signs Vital Sign Date Time Temp Pulse Resp B/P (MAP) Pulse Ox O2 Delivery O2 Flow Rate FiO2 08/28/24 06:29 90 16 98 08/28/24 06:23 Nasal Cannula* 3 32 08/28/24 05:20 121/61 08/28/24 05:00 96.1 96.1 Total Intake and Output 08/27/24 08/27/24 08/28/24 14:59 22:59 06:59 Intake Total 300 ml 896.6 ml 400 ml Output Total 500 ml Balance 300 ml 396.6 ml 400 ml medications Current Medications Medications Dose Ordered Sig/Dejon Route Start Time Stop Time Status Last Admin Dose Admin Sodium Chloride 10 ml Q8HR IV 08/24/24 14:00 08/28/24 06:11 10 ML Acetaminophen/ Hydrocodone Bitart 1 tab Q4HP PRN PO 08/24/24 11:30 Ondansetron HCl 4 mg Q4HP PRN IV 08/24/24 11:30 Docusate Sodium 100 mg BIDPRN PRN PO 08/24/24 11:30 Acetaminophen 650 mg Q6HP PRN PO 08/24/24 11:30 Nitroglycerin 0.4 mg Q5MINP PRN SL 08/24/24 11:30 Morphine Sulfate 2 mg Q30M PRN IV 08/24/24 11:30 Ceftriaxone Sodium 50 ml @ 100 mls/hr DAILY@09 IV 08/25/24 09:00 08/27/24 09:48 100 MLS/HR Azithromycin 250 ml @ 125 mls/hr DAILY IV 08/25/24 10:00 08/27/24 09:48 125 MLS/HR Apixaban 5 mg BID PO 08/24/24 22:00 08/27/24 21:17 5 MG Diagnostic Test (Pha) 1 strip ACHS 08/24/24 17:00 08/28/24 06:11 1 STRIP Insulin Human Regular HS SC 08/24/24 22:00 08/27/24 21:24 4 UNITS Insulin Human Regular AC SC 08/24/24 17:00 08/27/24 18:00 2 UNITS Dextrose 50 ml UD PRN IV 08/24/24 12:00 Ipratropium [place] 0.5 mg Q6HWA [facility] 08/24/24 12:00 08/28/24 06:23 0.5 MG Albuterol 2.5 mg Q6HWA [facility] 08/24/24 12:00 08/28/24 06:23 2.5 MG Methylprednisolone Sodium Succinate 40 mg BID IV 08/24/24 22:00 08/27/24 21:15 40 MG Empaglifozin 10 mg DAILY PO 08/25/24 10:00 08/27/24 09:50 10 MG Spironolactone 25 mg DAILY PO 08/25/24 10:00 08/27/24 09:50 25 MG Metoprolol Tartrate 50 mg BID PO 08/26/24 22:00 08/27/24 21:15 50 MG Lisinopril 5 mg DAILY PO 08/27/24 10:00 08/27/24 09:50 5 MG Furosemide 20 mg BIDD IV 08/27/24 18:00 08/28/24 05:20 20 MG Digoxin 0.125 mg EOD PO 08/29/24 10:00 Examination: LUNGS:Abnormal (Diminished), CVS:Abnormal (A-fib with intermittent RVR. BLE edema ++), NEURO:Normal laboratory and microbiology Laboratory Tests 08/28/24 04:05 08/25/24 04:49 Test 08/28/24 04:05 Range/Units Serum Glucose 98 # 74-106 mg/dL Problem List/Assessment/Plan Problem List/Assessment/Plan Atrial fibrillation with intermittent RVR, likely persistent (on Eliquis) Acute on chronic decompensated HFrEF, NYHA class III Mitral valve regurgitation, moderate degree Tricuspid valve regurgitation, severe degree Acute respiratory failure secondary to pneumonia History of lung cancer status post left lower lobe lobectomy and radiation Tobacco use Plan/Recommendation (Dr. Lu) * Echo reviewed, EF 30% with global hypokinesis. * Moderate aortic sclerosis with moderate aortic insufficiency. Severe TR, moderate MR. * Continue guideline directed medical therapy for CHF as tolerated * Strict intake and output, daily weights, maintain fluid restriction * Preload and afterload reduction * Continue NOAC therapy, Eliquis * [id number] VASc score: 4 points, HAS-BLED score: 2 points * Beta-vicky BID and digoxin QD for rate control * Antiarrhythmic, discontinue amiodarone drip given persistent a-fib * Monitor and replete electrolytes as needed, K>4 and Mg >2 * Antibiotics per primary care team * Close Cardiac surveillance Thank you for allowing me to participate in the management of this patient. The treatment plan was discussed with and agreed upon by patient/family including requesting consultants and ordering of imaging/procedures. This medical document was created using an electronic medical record system with voice recognition software and computerized dictation system. Although this document has been carefully reviewed, there might still be some phonetic and typographical errors. Occasional wrong-word or ``sound-alike substitutions may have occurred due to the inherent limitations of voice recognition software. These areas are purely typographical due to imperfections of the software programs and do not reflect any compromise in the patient's medical care. Please read the chart carefully and recognize, using context, where these substitutions have occurred. Plan discussed with: Patient, Other Dietary Evaluation Review Comments: 1) CCHO 75 gm + cardica diet 2) monitor blood glucose, lab vlaues, PO intake, and wt trend Expected Outcomes/Goals: To meet >75% estimated needs Fu 3-5 days Date of Service: Aug 28, 2024 Billing Provider: GERALDINE RODAS Cardiology Common Codes: [id number] HOSP CARE(High GERALDINE RODAS Aug 28, 2024 09:23
--- NOTE | 2024-08-28 09:56 | DVH ---
CHEST RADIOGRAPH Indication: CHF Technique: Portable AP view of the chest was performed. Comparison: XY CHEST PORTABLE on DOS: 08/24/24, XY CHEST PORTABLE on DOS: 08/22/23, XY CHEST PORTABLE o n DOS: 08/24/24 FINDINGS: There is diffuse interstitial prominence. There is right basilar infiltrate. There are likely small bilateral pleural effusions. No pneumothorax. The heart is enlarged. The aortic arch is calcific. Th ere is likely a calcified granuloma in the right hilum. The central pulmonary arteries may be ectatic . IMPRESSION: 1. No interval change.
[2024-08-28] MEDS: DIGOXIN 0.125 MG TAB PO SCH (10:20)
[2024-08-28] MEDS: FUROSEMIDE 20 MG/2 ML VIAL IV ONE (10:33)
--- NOTE | 2024-08-28 11:42 | DVHPN2 ---
Reviewed: Care Plan, H&P, Labs, Medications, Previous Orders, Radiology Changes from previous H/P or p: No Changes Eyes: No Pain, No Vision change, No Conjunctivae inflammation, No Eyelid inflammation, No Other, No Redness ENT: No Ear pain, No Ear discharge, No Nose pain, No Nose discharge, No Nose congestion, No Mouth pain, No Mouth swelling, No Throat pain, No Throat swelling, No Other Cardiovascular: No Chest Pain; Palpitations; No Orthopnea, No Paroxysmal Noc. Dyspnea, No Edema, No Lt Headedness, No Other Respiratory: No Cough, No Dry; Shortness of breath, SOB with excertion, W heezing; No Hemoptysis, No Pleuritic Pain, No Sputum, No Other Gastrointestinal: No Nausea, No Vomiting, No Abdominal Pain, No Diarrhea, No Constipation, No Melena, No Hematochezia, No Other Genitourinary: No Dysuria, No Frequency, No Incontinence, No Hematuria, No Retention, No Other Musculoskeletal: No other, No neck pain, No shoulder pain, No arm pain, No back pain, No hand pain, No leg pain, No foot pain Skin: No Rash, No Lesions, No Jaundice, No Bruising, No Other Objective Vitals Vital Signs Date Time Temp Pulse Resp B/P (MAP) Pulse Ox O2 Delivery O2 Flow Rate FiO2 08/28/24 11:36 95 Nasal Cannula 2.0 08/28/24 11:36 28 08/28/24 11:36 71 18 08/28/24 10:33 152/75 08/28/24 09:00 97.0 97.0 Intake/Output Intake and Output 08/28/24 07:00 Intake Total 1596.6 ml Output Total 500 ml Balance 1096.6 ml Intake Oral 1080 ml IV Total 516.6 ml Output Urine Total 500 ml # Voids 3 # Bowel Movements 2 Medications Current Medications Medications Dose Ordered Sig/Dejon Route Start Time Stop Time Status Last Admin Dose Admin Sodium Chloride 10 ml Q8HR IV 08/24/24 14:00 08/28/24 06:11 10 ML Acetaminophen/ Hydrocodone Bitart 1 tab Q4HP PRN PO 08/24/24 11:30 Ondansetron HCl 4 mg Q4HP PRN IV 08/24/24 11:30 Docusate Sodium 100 mg BIDPRN PRN PO 08/24/24 11:30 Acetaminophen 650 mg Q6HP PRN PO 08/24/24 11:30 Nitroglycerin 0.4 mg Q5MINP PRN SL 08/24/24 11:30 Morphine Sulfate 2 mg Q30M PRN IV 08/24/24 11:30 Ceftriaxone Sodium 50 ml @ 100 mls/hr DAILY@09 IV 08/25/24 09:00 08/28/24 10:09 100 MLS/HR Azithromycin 250 ml @ 125 mls/hr DAILY IV 08/25/24 10:00 08/28/24 10:16 125 MLS/HR Apixaban 5 mg BID PO 08/24/24 22:00 08/28/24 10:23 5 MG Diagnostic Test (Pha) 1 strip ACHS 08/24/24 17:00 08/28/24 06:11 1 STRIP Insulin Human Regular HS SC 08/24/24 22:00 08/27/24 21:24 4 UNITS Insulin Human Regular AC SC 08/24/24 17:00 08/27/24 18:00 2 UNITS Dextrose 50 ml UD PRN IV 08/24/24 12:00 Ipratropium [place] 0.5 mg Q6HWA NEB 08/24/24 12:00 08/28/24 11:36 0.5 MG Albuterol 2.5 mg Q6HWA NEB 08/24/24 12:00 08/28/24 11:36 2.5 MG Methylprednisolone Sodium Succinate 40 mg BID IV 08/24/24 22:00 08/28/24 10:24 40 MG Empaglifozin 10 mg DAILY PO 08/25/24 10:00 08/28/24 10:16 10 MG Spironolactone 25 mg DAILY PO 08/25/24 10:00 08/28/24 10:23 25 MG Metoprolol Tartrate 50 mg BID PO 08/26/24 22:00 08/28/24 10:24 50 MG Lisinopril 5 mg DAILY PO 08/27/24 10:00 08/28/24 10:23 5 MG Digoxin 0.125 mg DAILY PO 08/28/24 10:00 08/28/24 10:20 0.125 MG Furosemide 40 mg BIDD IV 08/28/24 18:00 Laboratory Results Laboratory Tests 08/25/24 04:49 08/28/24 04:05 Chemistry Test 08/28/24 04:05 Calcium Level 8.2 mg/dL (8.7-10.4) L Magnesium Level 2.3 mg/dL (1.6-2.6) Cardiac Markers Test 08/28/24 04:05 B-Type Natriuretic Peptide 986.05 pg/mL (0-100) Microbiology Microbiology Date/Time Source Procedure Growth Status 08/24/24 11:49 Blood Blood Culture - Preliminary NO GROWTH AFTER 72 HOURS OF INCUBATION. Resulted Labs and/or images reviewed: Labs reviewed by me, Image(s) reviewed by me Assessment/Plan Assessment/Plan Acute hypoxic Respiratory failure secondary to pneumonia: Oxygen by nasal cannula Acute right lower lobe pneumonia Gram-positive versus gm neg Rocephin azithromycin albuterol Atrovent med neb No pleural effusions Atrial fibrillation with uncontrolled rate, likely persistent , continue Eliquis , amiodarone discontinued, continue digoxin, metoprolol tartrate 50 mg p.o. b.i.d. Acute on chronic decompensated HFrEF, NYHA class III (last echo 08/22/23) cardiology consult appreciated echo 30 % ejection fraction Aldactone Jardiance Moderately severe mitral valve regurgitation Mild to moderate tricuspid regurgitation History of lung cancer status post left lower lobe lobectomy and radiation Tobacco use counseling DVT ruled out Blood cultures negative Patient worked in the [employer] for four years Time spent 50 minutes Patient is full code ABG on room air ordered to see if he qualifies for home oxygen Possible discharge Tuesday Plan discussed with: Patient Date of Service: Aug 28, 2024 Billing Provider: AIDA HERNÁNDEZ MD Common Visit Codes: [id number] INP/OBS CARE(HIGH) AIDA HERNÁNDEZ MD Aug 28, 2024 11:42
[2024-08-28 15:32] LABS: Base Excess 3.8 mmol/L (-2.0-3.0)
[2024-08-28] MEDS: FUROSEMIDE 40 MG/4 ML VIAL IV SCH (17:32)
[2024-08-29] VITALS (17 sets, daily range): BP systolic 98–153; BP diastolic 65–79; PULSE 57–118; RESP 16–20; TEMP 96.1–98.2; O2SAT 88–100
[2024-08-29] MEDS ORDERED: DIGOXIN 0.125 MG TAB PO SCH (10:00)
--- NOTE | 2024-08-29 10:54 | DVHPN2 ---
Consult Progress Note Subjective Other Systems: Patient in atrial fibrillation with controlled rate on engine monitor at time of assessment Objective vital signs Vital Sign Date Time Temp Pulse Resp B/P (MAP) Pulse Ox O2 Delivery O2 Flow Rate FiO2 08/29/24 09:19 149/78 08/29/24 09:18 103 08/29/24 08:56 97.6 17 90 97.6 08/29/24 08:00 Nasal Cannula* 2 28 Total Intake and Output 08/28/24 08/28/24 08/29/24 15:00 23:00 07:00 Intake Total 300 ml 680 ml 800 ml Output Total 1550 ml 500 ml Balance 300 ml -870 ml 300 ml medications Current Medications Medications Dose Ordered Sig/Dejon Route Start Time Stop Time Status Last Admin Dose Admin Sodium Chloride 10 ml Q8HR IV 08/24/24 14:00 08/29/24 06:03 10 ML Acetaminophen/ Hydrocodone Bitart 1 tab Q4HP PRN PO 08/24/24 11:30 Ondansetron HCl 4 mg Q4HP PRN IV 08/24/24 11:30 Docusate Sodium 100 mg BIDPRN PRN PO 08/24/24 11:30 Acetaminophen 650 mg Q6HP PRN PO 08/24/24 11:30 Nitroglycerin 0.4 mg Q5MINP PRN SL 08/24/24 11:30 Morphine Sulfate 2 mg Q30M PRN IV 08/24/24 11:30 Ceftriaxone Sodium 50 ml @ 100 mls/hr DAILY@09 IV 08/25/24 09:00 08/29/24 09:16 100 MLS/HR Azithromycin 250 ml @ 125 mls/hr DAILY IV 08/25/24 10:00 08/29/24 09:17 125 MLS/HR Apixaban 5 mg BID PO 08/24/24 22:00 08/29/24 09:33 5 MG Diagnostic Test (Pha) 1 strip ACHS 08/24/24 17:00 08/29/24 06:37 1 STRIP Insulin Human Regular HS SC 08/24/24 22:00 08/28/24 22:23 2 UNITS Insulin Human Regular AC SC 08/24/24 17:00 08/29/24 06:02 3 UNITS Dextrose 50 ml UD PRN IV 08/24/24 12:00 Ipratropium [place] 0.5 mg Q6HWA NEB 08/24/24 12:00 08/29/24 07:02 0.5 MG Albuterol 2.5 mg Q6HWA [facility] 08/24/24 12:00 08/29/24 07:02 2.5 MG Methylprednisolone Sodium Succinate 40 mg BID IV 08/24/24 22:00 08/29/24 09:17 40 MG Empaglifozin 10 mg DAILY PO 08/25/24 10:00 08/29/24 09:33 10 MG Spironolactone 25 mg DAILY PO 08/25/24 10:00 08/29/24 09:17 25 MG Metoprolol Tartrate 50 mg BID PO 08/26/24 22:00 08/29/24 09:18 50 MG Lisinopril 5 mg DAILY PO 08/27/24 10:00 08/29/24 09:19 5 MG Digoxin 0.125 mg DAILY PO 08/28/24 10:00 08/29/24 09:18 0.125 MG Furosemide 40 mg BIDD IV 08/28/24 18:00 08/29/24 05:55 40 MG Examination: GENERAL:Normal, LUNGS:Normal, CVS:Normal, NEURO:Normal laboratory and microbiology Laboratory Tests 08/28/24 04:05 08/25/24 04:49 Test 08/28/24 04:05 Range/Units Serum Glucose 98 # 74-106 mg/dL Problem List/Assessment/Plan Problem List/Assessment/Plan Atrial fibrillation with intermittent RVR, likely persistent (on Eliquis) Acute on chronic decompensated HFrEF, NYHA class III Mitral valve regurgitation, moderate degree Tricuspid valve regurgitation, severe degree Acute respiratory failure secondary to pneumonia History of lung cancer status post left lower lobe lobectomy and radiation Tobacco use Plan/Recommendation (Dr. Lu) * Echo reviewed, EF 30% with global hypokinesis. * Moderate aortic sclerosis with moderate aortic insufficiency. Severe TR, moderate MR. * Continue guideline directed medical therapy for CHF as tolerated * Strict intake and output, daily weights, maintain fluid restriction * Preload and afterload reduction * Continue NOAC therapy, Eliquis * [id number] VASc score: 4 points, HAS-BLED score: 2 points * Beta-vicky BID and digoxin QD for rate control * Antiarrhythmic, discontinue amiodarone drip given persistent a-fib * Monitor and replete electrolytes as needed, K>4 and Mg >2 * Antibiotics per primary care team * Close Cardiac surveillance The treatment plan was discussed with and agreed upon by patient including requesting consultants and ordering of imaging/procedures. There is no further inpatient cardiac workup indicated at this time. The patient will follow up with his pocketbook maker at the [place] within 1-2 weeks post discharge. Thank you for allowing me to participate in the management of this patient. This medical document was created using an electronic medical record system with voice recognition software and computerized dictation system. Although this document has been carefully reviewed, there might still be some phonetic and typographical errors. Occasional wrong-word or ``sound-alike substitutions may have occurred due to the inherent limitations of voice recognition software. These areas are purely typographical due to imperfections of the software programs and do not reflect any compromise in the patient's medical care. Please read the chart carefully and recognize, using context, where these substitutions have occurred. Plan discussed with: Patient Dietary Evaluation Review Comments: 1) CCHO 75 gm + cardica diet 2) monitor blood glucose, lab vlaues, PO intake, and wt trend Expected Outcomes/Goals: To meet >75% estimated needs Fu 3-5 days Date of Service: Aug 29, 2024 Billing Provider: RADHA CHARLES Common Visit Codes: [id number] INP/OBS CARE(HIGH) RADHA CHARLES Aug 29, 2024 10:54
--- NOTE | 2024-08-29 11:41 | DVHPN2 ---
Reviewed: Care Plan, H&P, Labs, Medications, Previous Orders, Radiology Changes from previous H/P or p: No Changes Eyes: No Pain, No Vision change, No Conjunctivae inflammation, No Eyelid inflammation, No Other, No Redness ENT: No Ear pain, No Ear discharge, No Nose pain, No Nose discharge, No Nose congestion, No Mouth pain, No Mouth swelling, No Throat pain, No Throat swelling, No Other Cardiovascular: No Chest Pain; Palpitations; No Orthopnea, No Paroxysmal Noc. Dyspnea, No Edema, No Lt Headedness, No Other Respiratory: No Cough, No Dry; Shortness of breath, SOB with excertion, W heezing; No Hemoptysis, No Pleuritic Pain, No Sputum, No Other Gastrointestinal: No Nausea, No Vomiting, No Abdominal Pain, No Diarrhea, No Constipation, No Melena, No Hematochezia, No Other Genitourinary: No Dysuria, No Frequency, No Incontinence, No Hematuria, No Retention, No Other Musculoskeletal: No other, No neck pain, No shoulder pain, No arm pain, No back pain, No hand pain, No leg pain, No foot pain Skin: No Rash, No Lesions, No Jaundice, No Bruising, No Other Objective Vitals Vital Signs Date Time Temp Pulse Resp B/P (MAP) Pulse Ox O2 Delivery O2 Flow Rate FiO2 08/29/24 11:16 94 Nasal Cannula 2.0 08/29/24 11:16 28 08/29/24 11:16 71 20 08/29/24 09:19 149/78 08/29/24 08:56 97.6 97.6 Intake/Output Intake and Output 08/29/24 07:00 Intake Total 1780 ml Output Total 2050 ml Balance -270 ml Intake Oral 1480 ml IV Total 300 ml Output Urine Total 2050 ml Medications Current Medications Medications Dose Ordered Sig/Dejon Route Start Time Stop Time Status Last Admin Dose Admin Sodium Chloride 10 ml Q8HR IV 08/24/24 14:00 08/29/24 06:03 10 ML Acetaminophen/ Hydrocodone Bitart 1 tab Q4HP PRN PO 08/24/24 11:30 Ondansetron HCl 4 mg Q4HP PRN IV 08/24/24 11:30 Docusate Sodium 100 mg BIDPRN PRN PO 08/24/24 11:30 Acetaminophen 650 mg Q6HP PRN PO 08/24/24 11:30 Nitroglycerin 0.4 mg Q5MINP PRN SL 08/24/24 11:30 Morphine Sulfate 2 mg Q30M PRN IV 08/24/24 11:30 Ceftriaxone Sodium 50 ml @ 100 mls/hr DAILY@09 IV 08/25/24 09:00 08/29/24 09:16 100 MLS/HR Azithromycin 250 ml @ 125 mls/hr DAILY IV 08/25/24 10:00 08/29/24 09:17 125 MLS/HR Apixaban 5 mg BID PO 08/24/24 22:00 08/29/24 09:33 5 MG Diagnostic Test (Pha) 1 strip ACHS 08/24/24 17:00 08/29/24 06:37 1 STRIP Insulin Human Regular HS SC 08/24/24 22:00 08/28/24 22:23 2 UNITS Insulin Human Regular AC SC 08/24/24 17:00 08/29/24 06:02 3 UNITS Dextrose 50 ml UD PRN IV 08/24/24 12:00 Ipratropium [place] 0.5 mg Q6HWA NEB 08/24/24 12:00 08/29/24 11:16 0.5 MG Albuterol 2.5 mg Q6HWA NEB 08/24/24 12:00 08/29/24 11:16 2.5 MG Methylprednisolone Sodium Succinate 40 mg BID IV 08/24/24 22:00 08/29/24 09:17 40 MG Empaglifozin 10 mg DAILY PO 08/25/24 10:00 08/29/24 09:33 10 MG Spironolactone 25 mg DAILY PO 08/25/24 10:00 08/29/24 09:17 25 MG Metoprolol Tartrate 50 mg BID PO 08/26/24 22:00 08/29/24 09:18 50 MG Lisinopril 5 mg DAILY PO 08/27/24 10:00 08/29/24 09:19 5 MG Digoxin 0.125 mg DAILY PO 08/28/24 10:00 08/29/24 09:18 0.125 MG Furosemide 40 mg BIDD IV 08/28/24 18:00 08/29/24 05:55 40 MG Laboratory Results Laboratory Tests 08/25/24 04:49 08/28/24 04:05 Blood Gas Results Test 08/28/24 15:20 Arterial Blood pH 7.474 (7.350-7.450) FiO2 % 21.0 Microbiology Microbiology Date/Time Source Procedure Growth Status 08/24/24 11:49 Blood Blood Culture - Preliminary NO GROWTH AFTER 72 HOURS OF INCUBATION. Resulted Labs and/or images reviewed: Labs reviewed by me, Image(s) reviewed by me Assessment/Plan Assessment/Plan Acute hypoxic Respiratory failure secondary to pneumonia: Oxygen by nasal cannula Acute right lower lobe pneumonia Gram-positive versus gm neg Rocephin azithromycin albuterol Atrovent med neb No pleural effusions Atrial fibrillation with uncontrolled rate, likely persistent , continue Eliquis , amiodarone discontinued, continue digoxin, metoprolol tartrate 50 mg p.o. b.i.d. Acute on chronic decompensated HFrEF, NYHA class III (last echo 08/22/23) cardiology consult appreciated echo 30 % ejection fraction Aldactone Jardiance Moderately severe mitral valve regurgitation Mild to moderate tricuspid regurgitation History of lung cancer status post left lower lobe lobectomy and radiation Tobacco use counseling DVT ruled out Blood cultures negative Patient worked in the [employer] for four years Time spent 50 minutes Patient is full code ABG on room air shows he does not qualify for home oxygen, still short of breath, will repeat ABG on room air CT chest ordered, pulmonary consult Dr. Romero ordered Plan discussed with: Patient My Orders Orders - AIDA HERNÁNDEZ MD Procedure Category Date Status Time Abg W/ Co-Ox RT 08/28/24 Logged 14:49 Date of Service: Aug 29, 2024 Billing Provider: AIDA HERNÁNDEZ MD Common Visit Codes: [id number] CARE 30-74 MIN AIDA HERNÁNDEZ MD Aug 29, 2024 11:41
--- NOTE | 2024-08-29 12:59 | DVH ---
Procedure: CT CHEST WITHOUT CONTRAST Reason for study/Clinical History: Shortness of breath rule out pleural effusion Comparison Study: US CHEST ULTRASOUND on DOS: 08/24/24 CT angio of the chest on 08/22/23 Exam Date: 08/29/2024 12:28 PM TECHNIQUE: Multidetector CT of the chest was performed from the lung apices to the upper abdomen with out the use of intravenous contract. Axial, coronal and sagittal multiplanar reformats were performed . Radiation Dose Information: CT Dose: CTDI volume is 13 mGy. Dose-length product is 509 mGy*cm The dose indicators for CT are the volume Computed Tomography (CT) Dose Index (CTDIvol) and the Dose Length Product (DLP), and are measured in units of mGy and mGy-cm, respectively. These indicators are not patient dose, but values generated from the CT scanner acquisition factors. The report includes radiation exposure data for exposures received during this examination. FINDINGS: Lower neck: Normal thyroid. Lungs: There are areas of atelectasis in the left lower lobe. There is compressive atelectasis of th e right lower lobe. Heart/Vascular Structures: Heart size is enlarged. There is no pericardial effusion. There is coron neptali artery calcification present Lymph Nodes: No adenopathy Pleura: Moderately large right pleural effusion mainly at the base with compression of the right lowe r lobe. There is a loculated effusion in the left lower lung zone with minimal free fluid in the cost ophrenic angle. Musculoskeletal: No acute osseous abnormality. Soft tissues: Normal. Upper abdomen: Limited portions of the upper abdomen are unremarkable. IMPRESSION: 1. Moderately large right pleural effusion. Small left pleural effusion 2. Signs of extensive atherosclerotic cardiovascular disease. Radiation optimization: All CT scans at this facility use at least one of these dose optimization reina hniques: automated exposure control mA and/or kV adjustment per patient size (includes targeted exam s where dose is matched to clinical indication) or iterative reconstruction.
[2024-08-29 13:14] LABS: Base Excess -1.9 mmol/L (-2.0-3.0)
--- NOTE | 2024-08-29 18:16 | DVHINCON2 ---
Date of service: Aug 29, [address] bibi sanders Reason for Consultation pl effusion History of Present Illness HPI pt is an 84 yo male with h/o lung cancer, previous resection and radiation therapy > 10 years ago, former smoker, presented with palpitations and shortness of breath. Found to have large pleural effusion Home Meds Active Scripts Albuterol Sulfate (VENTOLIN MDI) 90 Mcg Ih, 90 MCG IN QID PRN, #1 INH Prov:AIDA SANDERS MD 08/30/24 Methylprednisolone (Medrol Dosepak) 4 Mg Kelvin, 4 MG PO UD, #21 TAB UAD Prov:AIDA SANDERS MD 08/30/24 Doxycycline (Monohydrate) (Doxycycline) 100 Mg Cap, 100 MG PO BID, #20 CAP Prov:AIDA SANDERS MD 08/30/24 Empagliflozin (Jardiance) 10 Mg Tab, 10 MG PO DAILY, #90 TAB Prov:AIDA SANDERS MD 08/30/24 Spironolactone (Aldactone) 25 Mg Tab, 1 TAB PO DAILY, #90 TAB 1 Refill Prov:AIDA SANDERS MD 08/30/24 Digoxin (Digoxin) 125 Mcg Tab, 125 MCG PO DAILY, #30 TAB Prov:AIDA SANDERS MD 08/30/24 Furosemide (Lasix) 40 Mg Tab, 40 MG PO BID, #180 TAB Prov:AIDA SANDERS MD 08/30/24 Reported Medications Apixaban Base (ELIQUIS) 5 Mg Tab, 5 MG PO BID, TAB 08/23/23 Amlodipine Besylate (Amlodipine Besylate) 5 Mg Tab, 1 TAB PO DAILY, #30 TAB 5 Refills 08/23/23 B-Complex Vitamins (Vitamin B Complex) 1 Cap Cap, 1 CAP PO DAILY, CAP 08/23/23 Metoprolol Tartrate (Metoprolol Tartrate) 25 Mg Tab, 2 TAB PO BID, #180 TAB 1 Refill 08/23/23 Lisinopril (Lisinopril) 20 Mg Tab, 10 TAB PO DAILY, #30 TAB 5 Refills 08/23/23 Metformin Hydrochloride (Metformin Hcl) 500 Mg Tab, 1 TAB PO DAILY, #60 TAB 3 R efills 08/23/23 Discontinued Reported Medications Pregabalin (Lyrica) 75 Mg Cap, 75 MG PO Q6HP PRN for PAIN SCALE 7 THRU 10, CAP 08/23/23 Discontinued Scripts Furosemide (Furosemide) 20 Mg Tab, 1 TAB PO DAILY, #90 TAB 1 Refill Prov:MARGARITA SWARTZ RESIDENT 08/26/23 Spironolactone (Aldactone) 25 Mg Tab, 25 MG PO DAILY for 90 Days, #90 TAB Prov:MARGARITA SWARTZ RESIDENT 08/26/23 Empagliflozin (Jardiance) 10 Mg Tab, 10 MG PO DAILY for 90 Days, #90 TAB Prov:MARGARITA SWARTZ RESIDENT 08/26/23 Past Medical History Patient Family History: FH: GI cancer G8 MOTHER, H&P Exam Vital Signs Vital Signs Date Time Temp Pulse Resp B/P (MAP) Pulse Ox O2 Delivery O2 Flow Rate FiO2 08/29/24 17:27 143/73 08/29/24 17:00 97.7 92 17 91 97.7 08/29/24 11:16 Nasal Cannula 2.0 08/29/24 11:16 28 Labs/Xrays Labs Test 08/29/24 17:14 08/29/24 13:03 08/28/24 15:20 08/28/24 04:05 Range/Units POC Glucose 132 H 70-106 mg/dl Blood Gas Specimen Type Arterial Blood Gas Sample Site Right radial Blood Gas Patient Temperature 37.0 Arterial Blood Date Drawn [id number] Arterial Blood pH 7.363 7.350-7.450 Arterial Blood Partial Pressure CO2 42.2 35.0-48.0 mmHg Arterial Blood Partial Pressure O2 60.1 L 83.0-108.0 mmHg Arterial Blood HCO3 23.5 21.0-28.0 mmol/L Arterial Blood Oxygen Saturation 88.4 L 94.0-98.0 % Arterial Blood Base Excess -1.9 -2.0-3.0 mmol/L Arterial Blood Oxyhemoglobin 86.9 L 94.0-98.0 % Arterial Blood Carboxyhemoglobin 1.2 0.5-1.5 % Arterial Blood Methemoglobin 0.5 0.0-1.5 % Kulwant Test Yes Blood Gas Total Hemoglobin 16.90 13.5-17.5 g/dL Blood Gas Modality Room air FiO2 % 21.0 Blood Gas Liter Flow 0.00 Sodium Level 138 136-145 mmol/L Potassium Level 4.0 3.5-5.1 mmol/L Chloride Level 99 98-107 mmol/L Carbon Dioxide Level 29 20-31 mmol/L Anion Gap 10 5-15 Blood Urea Nitrogen 24 H 9-23 mg/dL Creatinine 0.87 0.700-1.30 mg/dL Glomerular Filtration Rate Calc 84 >90 mL/min BUN/Creatinine Ratio 27.6 H 10.0-20.0 Serum Glucose 98 # 74-106 mg/dL Calcium Level 8.2 L 8.7-10.4 mg/dL Magnesium Level 2.3 1.6-2.6 mg/dL B-Type Natriuretic Peptide 986.05 0-100 pg/mL Test 08/26/24 07:29 08/25/24 04:49 08/24/24 11:40 08/24/24 09:52 Range/Units Total Bilirubin 0.6 0.2-1.0 mg/dL Aspartate Amino Transferase (AST) 13 <34 U/L Alanine Aminotransferase (ALT) 20 7-40 U/L Alkaline Phosphatase 60 46-116 U/L Total Protein 5.9 5.7-8.2 g/dL Albumin 3.5 3.2-4.8 g/dL White Blood Count 6.6 # 4.4-10.8 10^3/uL Red Blood Count 4.49 L 4.5-5.90 10^6/uL Hemoglobin 14.5 13.5-17.5 g/dL Hematocrit 43.0 41.0-53.0 % Mean Corpuscular Volume 95.8 80.0-100.0 fL Mean Corpuscular Hemoglobin 32.4 H 28.0-32.0 pg Mean Corpuscular Hemoglobin Concent 33.8 32.0-36.0 g/dL Red Cell Distribution Width 14.9 H 11.8-14.3 % Platelet Count 286 140-450 10^3/uL Mean Platelet Volume 8.2 6.9-10.8 fL Neutrophils (%) (Auto) 37.0-80.0 % Lymphocytes (%) (Auto) 10.0-50.0 % Monocytes (%) (Auto) 0.0-12.0 % Basophils (%) (Auto) 0.0-2.0 % Neutrophils # (Auto) 1.6-8.6 10 ^3/uL Lymphocytes # (Auto) 0.4-5.4 10 ^3/uL Monocytes # (Auto) 0-1.3 10 ^3/uL Differential Total Cells Counted 100.0 100 Neutrophils % (Manual) 98 H 37.0-80.0 Band Neutrophils % (Manual) 0 Lymphocytes % (Manual) 1 L 10.0-50.0 Monocytes % (Manual) 1 0-12 Eosinophils % (Manual) 0 0-7 Basophils % (Manual) 0 0.0-2.0 Metamyelocytes % (manual) 0 Myelocytes % (Manual) 0 Promyelocytes % (Manual) 0 Blast Cells % (Manual) 0 Reactive Lymphocytes 0 Platelet Estimate Adequate Lactic Acid Level 1.2 0.4-2.0 mmol/L Troponin I High Sensitivity 13 </=54 ng/L Thyroid Stimulating Hormone (TSH) 1.15 0.55-4.78 uIU/mL Test 08/24/24 08:58 Range/Units Eosinophils (%) (Auto) 0.9 0.0-7.0 % Eosinophils # (Auto) 0.1 0-0.8 10 ^3/uL Basophils # (Auto) 0.1 0-0.2 10 ^3/uL Nucleated Red Blood Cells 0.1 % Prothrombin Time 13.3 H 9.3-11.8 sec Prothrombin Time INR 1.29 H 0.9-1.15 Activated Partial Thromboplast Time 35.6 H 24.5-34.5 SEC Hemoglobin A1c 5.5 <5.7 % A1C Triglycerides Level 65 < 150 mg/dL Cholesterol Level 111 < 200 mg/dL LDL Cholesterol 69 < 100 mg/dL HDL Cholesterol 28 L 40-59 mg/dL Microbiology Date/Time Source Procedure Growth Status 08/24/24 11:49 Blood Blood Culture - Final NO GROWTH AFTER 5 DAYS OF INCUBATION. Complete Assessment/Plan Plan Impression Acute hypoxemic respiratory failure Right pleural effusions History of lung cancer Atelectasis Patient seen and examined Events Low oxygen requirements On 2 liters nasal cannula Vital signs stable Thoracentesis was performed at the bedside See separate note for procedure in detail Sample sent for cytology Labs and imaging reviewed Management Supplemental oxygen Titrate to maintain sats 90% or above Incentive spirometry Bronchodilators Monitor renal function Monitor electrolytes Supplement as needed DVT prophylaxis Plan discussed with: Patient KAM GALE MD Aug 29, 2024 18:16
--- NOTE | 2024-08-29 18:36 | DVHNC2 ---
Procedure - procedure right sided thoracentesis us guided indication: pl effusion consent and time out per protocol US used to localized pl fluid posterior approach sterile drapes chloraprep x3 lidocaine 1% 5 cc 8F catheter used to drain 1000 cc of katelyn colored fluid sample sent for cytology band aid applied no complications KAM GALE MD Aug 29, 2024 18:36
[2024-08-30] VITALS (11 sets, daily range): BP systolic 108–147; BP diastolic 55–81; PULSE 57–95; RESP 17–20; TEMP 83.9–97.4; O2SAT 90–100
[2024-08-30 04:52] LABS: Body Fluid Red Blood Cells 1550 CUMM (0-2000); Body Fluid White Blood Cells 205 CUMM (0-200)
[2024-08-30] MEDS ORDERED: METH4PAK PO (11:18)
[2024-08-30] MEDS ORDERED: DOXY100C79 PO (11:18)
[2024-08-30] MEDS ORDERED: DIGO0.12 PO (11:18)
[2024-08-30] MEDS ORDERED: FURO1TAB31 PO (11:18)
[2024-08-30] MEDS ORDERED: SPIR25TA PO (11:18)
[2024-08-30] MEDS ORDERED: EMPA1TAB PO (11:18)
[2024-08-30] MEDS ORDERED: ALBUAER3 IN (11:18)
--- NOTE | 2024-08-30 11:19 | DVHPN2 ---
Reviewed: Care Plan, H&P, Labs, Medications, Previous Orders, Radiology Changes from previous H/P or p: No Changes Eyes: No Pain, No Vision change, No Conjunctivae inflammation, No Eyelid inflammation, No Other, No Redness ENT: No Ear pain, No Ear discharge, No Nose pain, No Nose discharge, No Nose congestion, No Mouth pain, No Mouth swelling, No Throat pain, No Throat swelling, No Other Cardiovascular: No Chest Pain; Palpitations; No Orthopnea, No Paroxysmal Noc. Dyspnea, No Edema, No Lt Headedness, No Other Respiratory: No Cough, No Dry; Shortness of breath, SOB with excertion, W heezing; No Hemoptysis, No Pleuritic Pain, No Sputum, No Other Gastrointestinal: No Nausea, No Vomiting, No Abdominal Pain, No Diarrhea, No Constipation, No Melena, No Hematochezia, No Other Genitourinary: No Dysuria, No Frequency, No Incontinence, No Hematuria, No Retention, No Other Musculoskeletal: No other, No neck pain, No shoulder pain, No arm pain, No back pain, No hand pain, No leg pain, No foot pain Skin: No Rash, No Lesions, No Jaundice, No Bruising, No Other Objective Vitals Vital Signs Date Time Temp Pulse Resp B/P (MAP) Pulse Ox O2 Delivery O2 Flow Rate FiO2 08/30/24 09:13 57 08/30/24 09:12 133/60 08/30/24 09:00 97.4 17 95 97.4 08/30/24 06:34 Nasal Cannula* 3 32 Intake/Output Intake and Output 08/30/24 07:00 Intake Total 1720 ml Balance 1720 ml Intake Oral 1420 ml IV Total 300 ml # Voids 9 # Bowel Movements 2 Medications Current Medications Medications Dose Ordered Sig/Dejon Route Start Time Stop Time Status Last Admin Dose Admin Sodium Chloride 10 ml Q8HR IV 08/24/24 14:00 08/30/24 05:52 10 ML Acetaminophen/ Hydrocodone Bitart 1 tab Q4HP PRN PO 08/24/24 11:30 Ondansetron HCl 4 mg Q4HP PRN IV 08/24/24 11:30 Docusate Sodium 100 mg BIDPRN PRN PO 08/24/24 11:30 Acetaminophen 650 mg Q6HP PRN PO 08/24/24 11:30 Nitroglycerin 0.4 mg Q5MINP PRN SL 08/24/24 11:30 Morphine Sulfate 2 mg Q30M PRN IV 08/24/24 11:30 Ceftriaxone Sodium 50 ml @ 100 mls/hr DAILY@09 IV 08/25/24 09:00 08/30/24 09:05 100 MLS/HR Azithromycin 250 ml @ 125 mls/hr DAILY IV 08/25/24 10:00 08/30/24 09:13 125 MLS/HR Apixaban 5 mg BID PO 08/24/24 22:00 08/30/24 09:13 5 MG Diagnostic Test (Pha) 1 strip ACHS 08/24/24 17:00 08/30/24 05:52 1 STRIP Insulin Human Regular HS SC 08/24/24 22:00 08/29/24 22:26 4 UNITS Insulin Human Regular AC SC 08/24/24 17:00 08/30/24 05:57 2 UNITS Dextrose 50 ml UD PRN IV 08/24/24 12:00 Ipratropium [place] 0.5 mg Q6HWA NEB 08/24/24 12:00 08/30/24 06:33 0.5 MG Albuterol 2.5 mg Q6HWA NEB 08/24/24 12:00 08/30/24 06:33 2.5 MG Methylprednisolone Sodium Succinate 40 mg BID IV 08/24/24 22:00 08/30/24 09:13 40 MG Empaglifozin 10 mg DAILY PO 08/25/24 10:00 08/30/24 09:11 10 MG Spironolactone 25 mg DAILY PO 08/25/24 10:00 08/30/24 09:13 25 MG Metoprolol Tartrate 50 mg BID PO 08/26/24 22:00 08/30/24 09:12 50 MG Lisinopril 5 mg DAILY PO 08/27/24 10:00 08/30/24 09:12 5 MG Digoxin 0.125 mg DAILY PO 08/28/24 10:00 08/30/24 09:13 0.125 MG Furosemide 40 mg BIDD IV 08/28/24 18:00 08/30/24 05:52 40 MG Laboratory Results Laboratory Tests 08/25/24 04:49 08/28/24 04:05 Blood Gas Results Test 08/29/24 13:03 Arterial Blood pH 7.363 (7.350-7.450) FiO2 % 21.0 Microbiology Microbiology Date/Time Source Procedure Growth Status 08/24/24 11:49 Blood Blood Culture - Final NO GROWTH AFTER 5 DAYS OF INCUBATION. Complete Labs and/or images reviewed: Labs reviewed by me, Image(s) reviewed by me Assessment/Plan Assessment/Plan Acute hypoxic Respiratory failure secondary to pneumonia: Oxygen by nasal cannula Acute right lower lobe pneumonia Gram-positive versus gm neg Rocephin azithromycin albuterol Atrovent med neb No pleural effusions Atrial fibrillation with uncontrolled rate, likely persistent , continue Eliquis , amiodarone discontinued, continue digoxin, metoprolol tartrate 50 mg p.o. b.i.d. 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 Zhu Patient now on room air at the time of discharge Plan discussed with: Patient My Orders Orders - AIDA HERNÁNDEZ MD Procedure Category Date Status Time Chest Without Contrast CT 08/29/24 Resulted 11:38 *Consult CONS 08/29/24 Transmitted / 11:39 * Wound Consult CONS 08/29/24 Transmitted Abg W/ Co-Ox RT 08/29/24 Logged 13:01 Apply Barrier Cream MILA 08/29/24 In Process 11:45 Date of Service: Aug 30, 2024 Billing Provider: AIDA HERNÁNDEZ MD Common Visit Codes: [id number] INP/OBS CARE(HIGH) AIDA HERNÁNDEZ MD Aug 30, 2024 11:19
--- NOTE | 2024-08-30 11:25 | DVHDS2 ---
Discharge Summary Date of Admission Aug 24, 2024 at 11:28 Date of Discharge: Aug 30, 2024 Admitting Diagnosis Acute respiratory failure Wounds: Right thoracentesis Labs/Diagnostic Data: Laboratory Results Test 08/30/24 05:50 08/29/24 18:32 08/29/24 13:03 08/28/24 15:20 POC Glucose 137 mg/dl (70-106) Body Fluid Source Pleural fluid Body Fluid pH 8.0 Body Fluid WBC (Manual) 205 CUMM (0-200) Body Fluid RBC (Manual) 1550 CUMM (0-2000) Body Fluid Mononuclear Cells 60 % Body Fluid Polymorphonuclear Cells 40 % (0-25) Blood Gas Specimen Type Arterial Blood Gas Sample Site Right radial Blood Gas Patient Temperature 37.0 Arterial Blood Date Drawn [id number] Arterial Blood pH 7.363 (7.350-7.450) Arterial Blood Partial Pressure CO2 42.2 mmHg (35.0-48.0) Arterial Blood Partial Pressure O2 60.1 mmHg (83.0-108.0) Arterial Blood HCO3 23.5 mmol/L (21.0-28.0) Arterial Blood Oxygen Saturation 88.4 % (94.0-98.0) Arterial Blood Base Excess -1.9 mmol/L (-2.0-3.0) Arterial Blood Oxyhemoglobin 86.9 % (94.0-98.0) Arterial Blood Carboxyhemoglobin 1.2 % (0.5-1.5) Arterial Blood Methemoglobin 0.5 % (0.0-1.5) Kulwant Test Yes Blood Gas Total Hemoglobin 16.90 g/dL (13.5-17.5) Blood Gas Modality Room air FiO2 % 21.0 Blood Gas Liter Flow 0.00 Test 08/28/24 04:05 08/26/24 07:29 08/25/24 04:49 08/24/24 11:40 Sodium Level 138 mmol/L (136-145) Potassium Level 4.0 mmol/L (3.5-5.1) Chloride Level 99 mmol/L (98-107) Carbon Dioxide Level 29 mmol/L (20-31) Anion Gap 10 (5-15) Blood Urea Nitrogen 24 mg/dL (9-23) Creatinine 0.87 mg/dL (0.700-1.30) Glomerular Filtration Rate Calc 84 mL/min (>90) BUN/Creatinine Ratio 27.6 (10.0-20.0) Serum Glucose 98 mg/dL (74-106) Calcium Level 8.2 mg/dL (8.7-10.4) Magnesium Level 2.3 mg/dL (1.6-2.6) B-Type Natriuretic Peptide 986.05 pg/mL (0-100) Total Bilirubin 0.6 mg/dL (0.2-1.0) Aspartate Amino Transferase (AST) 13 U/L (<34) Alanine Aminotransferase (ALT) 20 U/L (7-40) Alkaline Phosphatase 60 U/L (46-116) Total Protein 5.9 g/dL (5.7-8.2) Albumin 3.5 g/dL (3.2-4.8) White Blood Count 6.6 10^3/uL (4.4-10.8) Red Blood Count 4.49 10^6/uL (4.5-5.90) Hemoglobin 14.5 g/dL (13.5-17.5) Hematocrit 43.0 % (41.0-53.0) Mean Corpuscular Volume 95.8 fL (80.0-100.0) Mean Corpuscular Hemoglobin 32.4 pg (28.0-32.0) Mean Corpuscular Hemoglobin Concent 33.8 g/dL (32.0-36.0) Red Cell Distribution Width 14.9 % (11.8-14.3) Platelet Count 286 10^3/uL (140-450) Mean Platelet Volume 8.2 fL (6.9-10.8) Neutrophils (%) (Auto) % (37.0-80.0) Lymphocytes (%) (Auto) % (10.0-50.0) Monocytes (%) (Auto) % (0.0-12.0) Basophils (%) (Auto) % (0.0-2.0) Neutrophils # (Auto) 10 ^3/uL (1.6-8.6) Lymphocytes # (Auto) 10 ^3/uL (0.4-5.4) Monocytes # (Auto) 10 ^3/uL (0-1.3) Differential Total Cells Counted 100.0 (100) Neutrophils % (Manual) 98 (37.0-80.0) Band Neutrophils % (Manual) 0 Lymphocytes % (Manual) 1 (10.0-50.0) Monocytes % (Manual) 1 (0-12) Eosinophils % (Manual) 0 (0-7) Basophils % (Manual) 0 (0.0-2.0) Metamyelocytes % (manual) 0 Myelocytes % (Manual) 0 Promyelocytes % (Manual) 0 Blast Cells % (Manual) 0 Reactive Lymphocytes 0 Platelet Estimate Adequate Lactic Acid Level 1.2 mmol/L (0.4-2.0) Troponin I High Sensitivity 13 ng/L (</=54) Test 08/24/24 09:52 08/24/24 08:58 Thyroid Stimulating Hormone (TSH) 1.15 uIU/mL (0.55-4.78) Eosinophils (%) (Auto) 0.9 % (0.0-7.0) Eosinophils # (Auto) 0.1 10 ^3/uL (0-0.8) Basophils # (Auto) 0.1 10 ^3/uL (0-0.2) Nucleated Red Blood Cells 0.1 % Prothrombin Time 13.3 sec (9.3-11.8) Prothrombin Time INR 1.29 (0.9-1.15) Activated Partial Thromboplast Time 35.6 SEC (24.5-34.5) Hemoglobin A1c 5.5 % A1C (<5.7) Triglycerides Level 65 mg/dL (< 150) Cholesterol Level 111 mg/dL (< 200) LDL Cholesterol 69 mg/dL (< 100) HDL Cholesterol 28 mg/dL (40-59) Other Laboratory Tests 08/28/24 04:05 08/25/24 04:49 Brief Hx & Hospital Course: 84-year-old male with multiple medical problems including atrial fibrillation congestive heart failure mitral regurgitation tricuspid regurgitation lung cancer status post left lower lobe lobectomy came in complaining of shortness of breaths found to have community-acquired pneumonia treated with Rocephin azithromycin albuterol Atrovent Solu-Medrol. Patient has had a right pleural effusion drained [address] Zhu. Patient also had atrial fibrillation uncontrolled late patient on Eliquis started on amiodarone drip and discontinued placed on digoxin metoprolol tartrate Entresto and Jardiance CHF with the ejection fraction 30 percent. Blood cultures negative DVT ruled out chronic current smoker counseling Patient comfortable at the time of discharge on room air with stable vital signs. Discharged home. Medications sent to the pharmacy. He will follow up with his primary Dr at the [facility], cardiology Dr. Lu and pulmonology Dr. Zhu Consults/Reason for consult Cardiology Dr. Lu Pulmonology Dr. Zhu Operations or Procedures Right thoracentesis Echocardiogram Condition at Discharge: Fair Final Diagnosis/Problems List Acute hypoxic Respiratory failure secondary to pneumonia: Oxygen by nasal cannula Acute right lower lobe pneumonia Gram-positive versus gm neg Rocephin azithromycin albuterol Atrovent med neb No pleural effusions Atrial fibrillation with uncontrolled rate, likely persistent , continue Eliquis , amiodarone discontinued, continue digoxin, metoprolol tartrate 50 mg p.o. b.i.d. 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 Zhu Patient now on room air at the time of discharge Discharge Disposition: Home Discharge Instruct/Medications Diet: Cardiac 2g Na,low cholest Activity: Light activity Follow Up/Referral: Resume all previous home medications Medications as prescribed Follow up with your primary Dr at the [facility] Follow up with the Cardiology Dr. Lu in two weeks Follow up with the pulmonology Dr. Brady in one week Medications: New medications transmitted to [facility] (Time taken For discharge summary 36 minutes) Discharge Statement: "Patient was advised to return to the ER or call 911 if any headaches, dizziness, shortness of breath, chest pain, abdominal pain, bleeding, fevers, or worsening of medical condition. Patient was counseled about treatment plan, medications, possible side effects, patientverbalized understanding. All questions were answered to the best of my ability. This discharge took greater then 30 minutes in planning, reviewing documentation, counseling the patient, and discussing with other team members." ASSESSMENT ASSESSMENT Hospital Course Improved Assessment Acute hypoxic Respiratory failure secondary to pneumonia: Oxygen by nasal cannula Acute right lower lobe pneumonia Gram-positive versus gm neg Rocephin azithromycin albuterol Atrovent med neb No pleural effusions Atrial fibrillation with uncontrolled rate, likely persistent , continue Eliquis , amiodarone discontinued, continue digoxin, metoprolol tartrate 50 mg p.o. b.i.d. 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 Zhu Patient now on room air at the time of discharge Date of Service: Aug 30, 2024 Billing Provider: AIDA HERNÁNDEZ MD Common Visit Codes: [id number] DISCH DAY >30min AIDA HERNÁNDEZ MD Aug 30, 2024 11:25
--- NOTE | 2024-08-30 15:08 | DVHPN2 ---
Progress Note - Dictate Date Seen: Aug 30, 2024 Medical Necessity Reason Pt with a Central, PICC or Fol: No vital signs Vital Sign Date Time Temp Pulse Resp B/P (MAP) Pulse Ox O2 Delivery O2 Flow Rate FiO2 08/30/24 13:57 72 18 08/30/24 13:56 92 08/30/24 12:53 97.4 08/30/24 12:47 145/70 (95) 08/30/24 06:34 Nasal Cannula* 3 32 Total Intake and Output 08/29/24 08/29/24 08/30/24 15:00 23:00 07:00 Intake Total 300 ml 800 ml 620 ml Balance 300 ml 800 ml 620 ml medications Current Medications Medications Dose Ordered Sig/Dejon Route Start Time Stop Time Status Last Admin Dose Admin Sodium Chloride 10 ml Q8HR IV 08/24/24 14:00 08/30/24 05:52 10 ML Acetaminophen/ Hydrocodone Bitart 1 tab Q4HP PRN PO 08/24/24 11:30 Ondansetron HCl 4 mg Q4HP PRN IV 08/24/24 11:30 Docusate Sodium 100 mg BIDPRN PRN PO 08/24/24 11:30 Acetaminophen 650 mg Q6HP PRN PO 08/24/24 11:30 Nitroglycerin 0.4 mg Q5MINP PRN SL 08/24/24 11:30 Morphine Sulfate 2 mg Q30M PRN IV 08/24/24 11:30 Ceftriaxone Sodium 50 ml @ 100 mls/hr DAILY@09 IV 08/25/24 09:00 08/30/24 09:05 100 MLS/HR Azithromycin 250 ml @ 125 mls/hr DAILY IV 08/25/24 10:00 08/30/24 09:13 125 MLS/HR Apixaban 5 mg BID PO 08/24/24 22:00 08/30/24 09:13 5 MG Diagnostic Test (Pha) 1 strip ACHS 08/24/24 17:00 08/30/24 05:52 1 STRIP Insulin Human Regular HS SC 08/24/24 22:00 08/29/24 22:26 4 UNITS Insulin Human Regular AC SC 08/24/24 17:00 08/30/24 05:57 2 UNITS Dextrose 50 ml UD PRN IV 08/24/24 12:00 Ipratropium [place] 0.5 mg Q6HWA [facility] 08/24/24 12:00 08/30/24 13:55 0.5 MG Albuterol 2.5 mg Q6HWA [facility] 08/24/24 12:00 08/30/24 13:55 2.5 MG Methylprednisolone Sodium Succinate 40 mg BID IV 08/24/24 22:00 08/30/24 09:13 40 MG Empaglifozin 10 mg DAILY PO 08/25/24 10:00 08/30/24 09:11 10 MG Spironolactone 25 mg DAILY PO 08/25/24 10:00 08/30/24 09:13 25 MG Metoprolol Tartrate 50 mg BID PO 08/26/24 22:00 08/30/24 09:12 50 MG Lisinopril 5 mg DAILY PO 08/27/24 10:00 08/30/24 09:12 5 MG Digoxin 0.125 mg DAILY PO 08/28/24 10:00 08/30/24 09:13 0.125 MG Furosemide 40 mg BIDD IV 08/28/24 18:00 08/30/24 05:52 40 MG laboratory and microbiology Laboratory Tests 08/28/24 04:05 08/25/24 04:49 Test 08/28/24 04:05 Range/Units Serum Glucose 98 # 74-106 mg/dL Assessment/Plan Impression Acute hypoxemic respiratory failure Right pleural effusions History of lung cancer Atelectasis Patient seen and examined Events Low oxygen requirements On 3 liters nasal cannula No acute events, improving S/p thoracentesis Labs and imaging reviewed Management Supplemental oxygen Titrate to maintain sats 90% or above Incentive spirometry Bronchodilators Monitor renal function Monitor electrolytes Supplement as needed Okay to discharge from pulmonary standpoint DVT prophylaxis Dietary Evaluation Review Comments: 1) CCHO 75 gm + cardica diet 2) monitor blood glucose, lab vlaues, PO intake, and wt trend Expected Outcomes/Goals: To meet >75% estimated needs Fu 3-5 days Plan discussed with: Patient KAM GALE MD Aug 30, 2024 15:08
[2024-08-31 12:07] LABS: Protein, Body Fluid 1.3 g/dL (.)
== END 2024-08-30 14:40 | disposition home or self-care (01) | DRG 177 ==
LOC: EDBD 08:43 → ER 08:43 → OVERFLOW 11:28 → TELE-WESTW 16:38
PROVIDERS: ADMIT Family Medicine; ATTEND Family Medicine
PROC: 0W993ZZ Drainage of Right Pleural Cavity, Percutaneous Approach (ICD-10-PCS; principal; 2024-08-29)
DX: J15.69 Pneumonia due to other Gram-negative bacteria (principal); I50.23 Acute on chronic systolic (congestive) heart failure; J96.01 Acute respiratory failure with hypoxia; J91.8 Pleural effusion in other conditions classified elsewhere; I48.19 Other persistent atrial fibrillation; J15.9 Unspecified bacterial pneumonia; I11.0 Hypertensive heart disease with heart failure; E11.9 Type 2 diabetes mellitus without complications; I70.0 Atherosclerosis of aorta; I35.1 Nonrheumatic aortic (valve) insufficiency; I08.1 Rheumatic disorders of both mitral and tricuspid valves; E78.5 Hyperlipidemia, unspecified; I49.3 Ventricular premature depolarization; Z88.4 Allergy status to anesthetic agent; Z90.2 Acquired absence of lung [part of]; Z87.891 Personal history of nicotine dependence; Z85.118 Personal history of other malignant neoplasm of bronchus and lung; Z85.00 Personal history of malignant neoplasm of unspecified digestive organ; Z80.0 Family history of malignant neoplasm of digestive organs; Z79.899 Other long term (current) drug therapy; Z79.84 Long term (current) use of oral hypoglycemic drugs; Z79.01 Long term (current) use of anticoagulants
CPT/HCPCS: 32555; 36415; 36600; 71045; 71250; 76604; 80048; 80053; 80061; 82805; 82962; 83036; 83605; 83735; 83880; 83986; 84443; 84484; 85007; 85025; 85027; 85610; 85730; 87040; 87205; 89051; 93005; 93306; 93971; 94640; 96365; 96375; 99291; G0378; J0692; J1815; J3470